=== PATIENT | female | born 1995 | race Caucasian/White ===

== ENCOUNTER 2024-05-11 19:54 | Observation (INO) ==
[2024-05-11 20:19] LABS: iSTAT Creatinine 0.9 mg/dl (0.6-1.3); iSTAT Ionized Calcium 1.17 mmol/l (1.12-1.32); iSTAT Potassium 3.2 mmol/L (3.3-5.0)
[2024-05-11 20:28] LABS: Hematocrit (blood only) 47.5 % (37.0-47.0); Hemoglobin 15.8 g/dl (12.0-16.0); Mean Corpuscular Hemoglobin 28.2 pg (25.0-34.0); Mean Corpuscular Hgb Conc 33.3 g/dL (32.0-36.0); Mean Corpuscular Volume 84.8 fL (80.0-100.0); Mean Platelet Volume 10.9 fL (9.4-12.4); Platelet Count 395 K/uL (130-400); RDW Coefficient of Variation 14.8 % (11.5-14.5); RDW Standard Deviation 45.1 fL (36.4-46.3); White Blood Count 8.74 K/ul (4.8-10.8)
[2024-05-11] MEDS: SODIUM CHLORIDE 0.9% 1,000 ML IV ONE (20:29)
[2024-05-11] MEDS: diphenhydrAMINE 50 MG/ML VIAL IV STA (20:30)
[2024-05-11] MEDS: methylPREDNISolone 125 MG/2 ML VIAL IV STA (20:30)
[2024-05-11] MEDS: FAMOTIDINE 20MG IV PUSH 20 MG/5 ML SYR IV STA (20:32)
[2024-05-11 20:43] LABS: INR 0.9 (0.9-1.1); Partial Thromboplastin Ratio 0.9; Partial Thromboplastin Time 23 Seconds (21-31); Prothrombin Time 10.1 Seconds (9.0-12.0)
[2024-05-11 20:48] LABS: ALC (manual) 4.37 K/uL (1.2-3.4); ANC (manual) 3.76 K/uL (1.4-6.5); Basophils # (manual) 0.09 K/uL (0-0.2); Basophils % (manual) 1 %; D Dimer 3800 ug/L FEU (0-500); Eosinophils # (manual) 0.17 K/uL (0-0.50); Eosinophils % (manual) 2 %; Lymphocytes # (manual) 1.92 K/uL (1.2-3.4); Lymphocytes % (manual) 22 %; Monocytes # (manual) 0.35 K/uL (0.11-0.59); Monocytes % (manual) 4 %; Neutrophils # (manual) 3.76 K/uL (1.40-6.50); Neutrophils % (manual) 43 %; RBC Morphology Unremarkable; Reactive Lymphocytes # (manual) 2.45 K/uL; Reactive Lymphocytes % (manual) 28 %
[2024-05-11 21:00] LABS: BUN Creatinine Ratio 25.6 (10-20); Creatinine Clr Calc Pharmacy 93.7 ml/min; Est GFR (African American) 100.1 ml/min; Est GFR (Non-African American) 86.4 ml/min; Potassium 3.2 mmol/L (3.5-5.1)
[2024-05-11 21:07] LABS: Troponin I High Sensitivity 20.4 pg/ml (0-14)
[2024-05-11] MEDS: OPTIRAY 320 125ml IV ONE (21:28)
--- NOTE | 2024-05-11 21:54 | CT Scan Report ---
Exam(s): CTA CHEST IV Amt: 119ml optiray 320 EXAM: CT Angiography Chest With Intravenous Contrast CLINICAL HISTORY: Reason for exam: ro pe shield abd. TECHNIQUE: Axial computed tomographic angiography images of the chest with intravenous contrast. CTDI is 14.66 mGy and DLP is 475.78 mGy-cm. Automated exposure control was utilized for the study. A dose lowering technique was utilized adhering to the principles of ALARA. MIP reconstructed images were created and reviewed. COMPARISON: No relevant prior studies available. FINDINGS: Pulmonary arteries: Unremarkable. No pulmonary embolism. Aorta: No acute findings. Normal caliber. No dissection. Lungs: Unremarkable. Pleural space: Unremarkable. Heart: Unremarkable. Bones/joints: No acute fracture. Soft tissues: Unremarkable. Lymph nodes: Unremarkable. IMPRESSION: Normal chest CTA. No pulmonary embolism. Electronically signed by: Roberto Suero MD 05/11/24 21:53 PM
[2024-05-11 23:06] LABS: Troponin I High Sensitivity 164.7 pg/ml (0-14)
--- NOTE | 2024-05-12 00:09 | Emergency Department Note ---
History of Present Illness General Chief complaint: Respiratory Problems Stated complaint: SOB, 11 weeks Time Seen by Provider: 05/11/24 20:05 History of Present Illness Provider complaint: Shortness of breath 28-year-old G3, P2 presents emergency department for shortness of breath. Patient reports that at 7 PM she was eating premade food ball from a supermarket when she suddenly became very warm, felt it was difficult to be breathing and felt like her throat was closing. EMS was called. Reportedly, on arrival the patient was cyanotic at the lips with an oxygen saturation at 63% on room air and the patient was hypotensive. EMS applied supplemental oxygen which improved her oxygen saturation and started IV fluids which improved her blood pressure when the patient arrived to the emergency department. Patient reports that she is experiencing some abdominal pain in addition to difficulty breathing and feeling like her throat is closing. She also reports some mild chest pain. No vaginal bleeding or discharge. Past Med/Surg History Problem List (Updated 05/12/24 @ 00:13 by Enoch Qureshi MD) Elevated troponin I level (Acute) Allergic reaction (Acute) Shortness of breath (Acute) Social History Smoking Status: Never smoker Feels Safe at Home: Yes Physical Exam Vital Signs Vital Signs - 24 hr 05/11/24 19:57 05/11/24 19:59 05/11/24 19:59 Temperature 36.6 C Temperature Source Oral Pulse Rate 133 H 130 H Pulse Rate [Apical] Pulse Rate from SpO2 Sensor Respiratory Rate 19 Respiratory Depth Normal Blood Pressure 107/76 Blood Pressure [Right Arm] Blood Pressure Mean 86 Blood Pressure Mean [Right Arm] Pulse Oximetry 100 Oxygen Delivery Method Oxymask Oxygen Flow Rate 3 Sepsis Recent Fever Within 48 Hours No Sepsis New/Unexplained Change in Mental Status No Sepsis Action Taken by Nursing No Action Required Oxygen Flow Rate - Titration Pulse Oximetry Post Tiitration 05/11/24 20:02 05/11/24 20:06 05/11/24 20:12 Temperature Temperature Source Pulse Rate 123 H 125 H Pulse Rate [Apical] Pulse Rate from SpO2 Sensor 124 H 126 H Respiratory Rate 17 20 Respiratory Depth Blood Pressure 107/76 Blood Pressure [Right Arm] Blood Pressure Mean 85 Blood Pressure Mean [Right Arm] Pulse Oximetry 100 100 Oxygen Delivery Method Oxygen Flow Rate Sepsis Recent Fever Within 48 Hours Sepsis New/Unexplained Change in Mental Status Sepsis Action Taken by Nursing Oxygen Flow Rate - Titration Pulse Oximetry Post Tiitration 05/11/24 20:16 05/11/24 20:17 05/11/24 20:20 Temperature Temperature Source Pulse Rate Pulse Rate [Apical] 115 H Pulse Rate from SpO2 Sensor Respiratory Rate 18 Respiratory Depth Blood Pressure Blood Pressure [Right Arm] 104/72 Blood Pressure Mean Blood Pressure Mean [Right Arm] 82 Pulse Oximetry 100 100 100 Oxygen Delivery Method Oxymask Room Air Room Air Oxygen Flow Rate 3 Sepsis Recent Fever Within 48 Hours Sepsis New/Unexplained Change in Mental Status Sepsis Action Taken by Nursing Oxygen Flow Rate - Titration 0 Pulse Oximetry Post Tiitration 100 05/11/24 20:21 05/11/24 20:30 05/11/24 20:42 Temperature Temperature Source Pulse Rate 103 H 103 H Pulse Rate [Apical] Pulse Rate from SpO2 Sensor 104 H 104 H Respiratory Rate 18 18 Respiratory Depth Blood Pressure 104/72 Blood Pressure [Right Arm] Blood Pressure Mean 81 Blood Pressure Mean [Right Arm] Pulse Oximetry 100 100 Oxygen Delivery Method Oxygen Flow Rate Sepsis Recent Fever Within 48 Hours Sepsis New/Unexplained Change in Mental Status Sepsis Action Taken by Nursing Oxygen Flow Rate - Titration Pulse Oximetry Post Tiitration 05/11/24 20:45 05/11/24 21:00 05/11/24 21:03 Temperature Temperature Source Pulse Rate 94 H 83 Pulse Rate [Apical] Pulse Rate from SpO2 Sensor 94 H 82 Respiratory Rate 15 19 Respiratory Depth Blood Pressure 118/78 Blood Pressure [Right Arm] Blood Pressure Mean 85 Blood Pressure Mean [Right Arm] Pulse Oximetry 100 100 Oxygen Delivery Method Oxygen Flow Rate Sepsis Recent Fever Within 48 Hours Sepsis New/Unexplained Change in Mental Status Sepsis Action Taken by Nursing Oxygen Flow Rate - Titration Pulse Oximetry Post Tiitration 05/11/24 21:12 05/11/24 21:13 05/11/24 21:39 Temperature Temperature Source Pulse Rate 105 H 89 Pulse Rate [Apical] 82 Pulse Rate from SpO2 Sensor 98 H 89 Respiratory Rate 24 16 16 Respiratory Depth Blood Pressure Blood Pressure [Right Arm] 118/78 Blood Pressure Mean Blood Pressure Mean [Right Arm] 91 Pulse Oximetry 98 100 100 Oxygen Delivery Method Room Air Oxygen Flow Rate Sepsis Recent Fever Within 48 Hours Sepsis New/Unexplained Change in Mental Status Sepsis Action Taken by Nursing Oxygen Flow Rate - Titration Pulse Oximetry Post Tiitration 05/11/24 21:42 05/11/24 22:00 05/11/24 22:00 Temperature Temperature Source Pulse Rate 86 Pulse Rate [Apical] Pulse Rate from SpO2 Sensor 86 Respiratory Rate 18 Respiratory Depth Blood Pressure 115/71 115/71 Blood Pressure [Right Arm] Blood Pressure Mean 83 83 Blood Pressure Mean [Right Arm] Pulse Oximetry 100 Oxygen Delivery Method Oxygen Flow Rate Sepsis Recent Fever Within 48 Hours Sepsis New/Unexplained Change in Mental Status Sepsis Action Taken by Nursing Oxygen Flow Rate - Titration Pulse Oximetry Post Tiitration 05/11/24 22:09 05/11/24 22:15 05/11/24 22:21 Temperature Temperature Source Pulse Rate 100 H 88 94 H Pulse Rate [Apical] Pulse Rate from SpO2 Sensor 102 H 87 93 H Respiratory Rate 21 15 16 Respiratory Depth Blood Pressure Blood Pressure [Right Arm] Blood Pressure Mean Blood Pressure Mean [Right Arm] Pulse Oximetry 100 99 98 Oxygen Delivery Method Oxygen Flow Rate Sepsis Recent Fever Within 48 Hours Sepsis New/Unexplained Change in Mental Status Sepsis Action Taken by Nursing Oxygen Flow Rate - Titration Pulse Oximetry Post Tiitration 05/11/24 22:27 05/11/24 22:30 05/11/24 22:57 Temperature Temperature Source Pulse Rate 88 83 Pulse Rate [Apical] Pulse Rate from SpO2 Sensor 89 83 Respiratory Rate 16 16 Respiratory Depth Blood Pressure 106/66 Blood Pressure [Right Arm] Blood Pressure Mean 79 Blood Pressure Mean [Right Arm] Pulse Oximetry 99 100 Oxygen Delivery Method Oxygen Flow Rate Sepsis Recent Fever Within 48 Hours Sepsis New/Unexplained Change in Mental Status Sepsis Action Taken by Nursing Oxygen Flow Rate - Titration Pulse Oximetry Post Tiitration 05/11/24 23:00 05/11/24 23:00 05/11/24 23:46 Temperature Temperature Source Pulse Rate 83 82 Pulse Rate [Apical] Pulse Rate from SpO2 Sensor 84 Respiratory Rate 16 Respiratory Depth Blood Pressure 118/74 Blood Pressure [Right Arm] Blood Pressure Mean 84 Blood Pressure Mean [Right Arm] Pulse Oximetry 99 Oxygen Delivery Method Oxygen Flow Rate Sepsis Recent Fever Within 48 Hours Sepsis New/Unexplained Change in Mental Status Sepsis Action Taken by Nursing Oxygen Flow Rate - Titration Pulse Oximetry Post Tiitration Physical Exam HENT: Exam performed. -Head: Normocephalic and atraumatic. -Mouth/Throat: The oropharynx is clear and moist. No trismus in the jaw. No dental abscesses or uvula swelling. No oropharyngeal exudate or tonsillar abscesses. No lip or tongue swelling. No submental swelling. No tongue elevation. NECK: Normal range of motion. Neck supple. No JVD present. CV: Normal rate, regular rhythm, normal heart sounds and intact distal pulses. There is no peripheral edema. Palpable radial pulses bue. PULM/CHEST: Effort normal and breath sounds normal. No respiratory distress. No stridor. She has no wheezes. She has no rales. ABD: The abdomen is soft.There is no tenderness. There is no rebound, no guarding. MUSC/SKEL: Normal range of motion. There is no peripheral edema, tenderness or deformity. NEURO: Motor and sensation grossly intact. SKIN: Erythema of the bilateral lower extremities over the bilateral anterior shins. No warmth. No vesicles. No urticaria. Nikolsky negative. Course Course 2004: The patient was evaluated in room B1. A complete history and physical exam was performed Cardiac monitoring: An order was placed for continuous cardiac monitoring. The monitor shows a rate of 120 with sinus tachycardia rhythm interpreted by me Patient is most likely suffering from an allergic reaction given her difficulty breathing, erythema over the bilateral lower extremities, sudden onset of symptoms while eating the preprepared food, feelings of throat swelling. No tongue swelling no lip swelling no stridor no wheezing. Patient will be treated with IV fluids, IV Benadryl, IV Pepcid and Solu-Medrol. Given the patient's reported abdominal pain we will also obtain obstetric ultrasound and given the patient's chest pain we will also check labs including D-dimer. 2100: Patient in no respiratory distress oxygen saturation stable on room air. Patient reports symptoms better after receiving Benadryl through the IV as well as Pepcid and Solu-Medrol. 2117: Patient's D-dimer elevated. Will obtain CTA of the chest. 0: Vital signs stable. High-sensitivity troponin was 20.4. Will conduct a delta troponin. 2320: Vital signs stable. Patient no respiratory distress. Patient's delta troponin significantly higher at 164.7. The current thought is that the patient had an allergic reaction and the stress of the allergic reaction because the patient have a demand ischemia resulting in the troponin elevation. Patient reports no chest pain at this time. at bedside states the patient has been under a lot of stress. Will contact cardiology for further recommendations and to discuss if admission is appropriate. Discussed the case with on-call [facility] [employer] Dr. Costa who agreed to be on consult if necessary. 2348: Vital signs stable. Patient tolerating p.o. No acute respiratory distress. Lungs clear to auscultation. Discussed the case with [facility] cardiology on-call Dr. Zeng and she agrees that the patient should be admitted and she will evaluate the patient in the morning and perform an echocardiogram. Patient is in agreement with the plan. 0039: Vital signs stable. Discussed case with Dr. Martinez who will evaluate the patient. Discussed case with the [facility] resident Angelina will also evaluate the patient with Dr. Martinez. Administered Medications Discontinued Medications Diphenhydramine HCl (Diphenhydramine 50 Mg/Ml Vial) 25 mg IV NOW STA Stop: 05/11/24 20:12 Last Admin: 05/11/24 20:30 Dose: 25 mg Documented By: BEN Sodium Chloride (Nss) 1,000 mls @ 999 mls/hr IV .Q1H1M ONE Stop: 05/11/24 21:11 Last Infusion: 05/11/24 21:34 Dose: Infused Documented By: Admin: 05/11/24 20:29 Dose: 999 mls/hr Documented By: BEN Famotidine (Pepcid 20mg Iv Push) 20 mg in 5 mls @ 2.5 mls/min IV NOW STA Stop: 05/11/24 20:12 Last Admin: 05/11/24 20:32 Dose: 2.5 mls/min Documented By: BEN Ioversol (Optiray 320 125ml) 91 ml IV ONCE ONE Stop: 05/11/24 21:28 Last Admin: 05/11/24 21:28 Dose: 91 ml Documented By: VIJI Methylprednisolone (Methylprednisolone 125 Mg/2 Ml Vial) 125 mg IV NOW STA Stop: 05/11/24 20:12 Last Admin: 05/11/24 20:30 Dose: 125 mg Documented By: BEN Medical Decision Making Laboratory Data Attestation: I reviewed the patient's lab results. 05/11/24 19:59 05/11/24 19:59 Lab Results 05/11/24 05/11/24 05/11/24 Range/Units 19:59 20:06 22:05 WBC 8.74 (4.8-10.8) K/ul RBC 5.60 H (4.20-5.40) M/uL Hgb 15.8 (12.0-16.0) g/dl POC Hgb 16.0 (12.0-16.0) g/dl Hct 47.5 H (37.0-47.0) % POC Hct 47 (37-47) % MCV 84.8 (80.0-100.0) fL MCH 28.2 (25.0-34.0) pg MCHC 33.3 (32.0-36.0) g/dL RDW Std Deviation 45.1 (36.4-46.3) fL RDW Coeff of Naima 14.8 H (11.5-14.5) % Plt Count 395 (130-400) K/uL MPV 10.9 (9.4-12.4) fL Neutrophils % (Manual) 43 % Lymphocytes % (Manual) 22 % Reactive Lymphs % (Man) 28 % Monocytes % (Manual) 4 % Eosinophils % (Manual) 2 % Basophils % (Manual) 1 % Neutrophils # (Manual) 3.76 (1.40-6.50) K/uL Total Absolute Neuts 3.76 (1.4-6.5) K/uL Lymphocytes # (Manual) 1.92 (1.2-3.4) K/uL Reactive Lymphs # 2.45 K/uL Total Abs Lymphocytes 4.37 H (1.2-3.4) K/uL Monocytes # (Manual) 0.35 (0.11-0.59) K/uL Eosinophils # (Manual) 0.17 (0-0.50) K/uL Basophils # (Manual) 0.09 (0-0.2) K/uL RBC Morphology Unremarkable PT 10.1 (9.0-12.0) Seconds INR 0.9 (0.9-1.1) APTT 23 (21-31) Seconds PTT Ratio 0.9 D-Dimer 3800 H* (0-500) ug/L FEU POC Sodium 137 (135-144) mmol/L Sodium 135 L (136-145) mmol/L POC Potassium 3.2 L (3.3-5.0) mmol/L Potassium 3.2 L (3.5-5.1) mmol/L POC Chloride 104 (101-112) mmol/L Chloride 104 (98-107) mmol/L Carbon Dioxide 19 L (21-32) mmol/L POC Total CO2 18 L (24-31) mmol/L Anion Gap 12 H (3-11) POC Anion Gap 19.0 (16-25) mmol/L POC BUN 21 H (7-18) mg/dl BUN 23 (6-23) mg/dl Creatinine 0.90 (0.6-1.2) mg/dl POC Creatinine 0.9 (0.6-1.3) mg/dl Est Cr Clr Drug Dosing 93.7 ml/min Est GFR ( Amer) 100.1 ml/min Est GFR (Non-Af Amer) 86.4 ml/min BUN/Creatinine Ratio 25.6 H (10-20) Glucose 121 H (70-99(Fasting)) mg/dl POC Glucose (other) 121 H (70-99) mg/dl Calcium 9.0 (8.6-10.3) mg/dl POC Ioniz Calcium Shivani 1.17 (1.12-1.32) mmol/l Troponin I High Sens 20.4 H 164.7 H* D (0-14) pg/ml Lipase 37 (11-82) U/L HCG, Quant [id number] mIU/ml Imaging Data Attestation: I personally reviewed and interpreted this imaging study as follows: My Impression: Chest x-ray negative. Airway clear. No pneumothorax. No consolidation. No cardiomegaly or cephalization.. No free air under the diaphragm. No fractures of the skeletal structures. Radiologist's Impression: Pelvic/Transvag US 05/11/24 20:16 Exam(s): US OTHER EXAM: US First Trimester , Transabdominal CLINICAL HISTORY: Reason for exam: abd pain 11 weeks . TECHNIQUE: Real-time transabdominal obstetrical ultrasound of the maternal pelvis and a first trimester with image documentation. COMPARISON: No relevant prior studies available. FINDINGS: Gestation: Single living intrauterine with estimated gestational age of 11 weeks and 1 day. heart rate 173 bpm. Unremarkable appearance of the gestational sac, yolk sac, and pole. Uterus/cervix: Unremarkable. No myometrial mass. Ovaries: A corpus luteal cyst on the right ovary. Normal appearance of the left ovary. No suspicious adnexal lesion. No mass. Free fluid: No free fluid. IMPRESSION: Single living intrauterine with estimated gestational age of 11 weeks and 1 day. No acute abnormality. Electronically signed by: Roberto Suero MD 05/12/24 00:09 AM Chest CTA 05/11/24 21:18 Exam(s): CTA CHEST IV Amt: 119ml optiray 320 EXAM: CT Angiography Chest With Intravenous Contrast CLINICAL HISTORY: Reason for exam: ro pe shield abd. TECHNIQUE: Axial computed tomographic angiography images of the chest with intravenous contrast. CTDI is 14.66 mGy and DLP is 475.78 mGy-cm. Automated exposure control was utilized for the study. A dose lowering technique was utilized adhering to the principles of ALARA. MIP reconstructed images were created and reviewed. COMPARISON: No relevant prior studies available. FINDINGS: Pulmonary arteries: Unremarkable. No pulmonary embolism. Aorta: No acute findings. Normal caliber. No dissection. Lungs: Unremarkable. Pleural space: Unremarkable. Heart: Unremarkable. Bones/joints: No acute fracture. Soft tissues: Unremarkable. Lymph nodes: Unremarkable. IMPRESSION: Normal chest CTA. No pulmonary embolism. Electronically signed by: Roberto Suero MD 05/11/24 21:53 PM ECG Data Attestation: I personally reviewed and interpreted this ECG as follows: Rate (beats per minute): 125 Rhythm: + normal sinus ECG Intervals/blocks: + Normal CA and + Normal QT-c ECG ST segments: + Normal ST segments Additional Comments: QRS 76 MDM Narrative 2005: The patient was evaluated in room B1. A complete history and physical exam was performed Cardiac monitoring: An order was placed for continuous cardiac monitoring. The monitor shows a rate of 120 with sinus tachycardia rhythm interpreted by me Patient is most likely suffering from an allergic reaction given her difficulty breathing, erythema over the bilateral lower extremities, sudden onset of symptoms while eating the preprepared food, feelings of throat swelling. No tongue swelling no lip swelling no stridor no wheezing. Patient will be treated with IV fluids, IV Benadryl, IV Pepcid and Solu-Medrol. Given the patient's reported abdominal pain we will also obtain obstetric ultrasound and given the patient's chest pain we will also check labs including D-dimer. 2100: Patient in no respiratory distress oxygen saturation stable on room air. Patient reports symptoms better after receiving Benadryl through the IV as well as Pepcid and Solu-Medrol. 2118: Patient's D-dimer elevated. Will obtain CTA of the chest. 2200: Vital signs stable. High-sensitivity troponin was 20.4. Will conduct a delta troponin. 2321: Vital signs stable. Patient no respiratory distress. Patient's delta troponin significantly higher at 164.7. The current thought is that the patient had an allergic reaction and the stress of the allergic reaction because the patient have a demand ischemia resulting in the troponin elevation. Patient reports no chest pain at this time. at bedside states the patient has been under a lot of stress. Will contact cardiology for further recommendations and to discuss if admission is appropriate. Discussed the case with on-call [facility] [employer]INE REPORTER Dr. Costa who agreed to be on consult if necessary. 2348: Vital signs stable. Patient tolerating p.o. No acute respiratory distress. Lungs clear to auscultation. Discussed the case with [facility] cardiology on-call Dr. Zeng and she agrees that the patient should be admitted and she will evaluate the patient in the morning and perform an echocardiogram. Patient is in agreement with the plan. 0039: Vital signs stable. Discussed case with Dr. Martinez who will evaluate the patient. Discussed case with the [facility] resident Angelina will also evaluate the patient with Dr. Martinez. Impression & Plan Shortness of breath, Allergic reaction, Elevated troponin I level Discharge Plan Visit Data Chief Complaint: Respiratory Problems Stated Complaint: SOB, 11 weeks ED Provider: Enoch Qureshi Discharge Problem: Shortness of breath, Allergic reaction, Elevated troponin I level Patient Disposition: Being Evaluated by Hospitalist Forms Stand Alone Forms: [facility] Referrals Referrals: Tricia Walsh M.D. [Staff Physician] - Discharge Problem: Allergic reaction Qualifiers: Encounter type: initial encounter Qualified Code(s): T78.40XA - Allergy, unspecified, initial encounter
--- NOTE | 2024-05-12 00:30 | History & Physical Report ---
Date of Service May 12, 2024 Assessment & Plan (1) Allergic reaction: (2) Shortness of breath: (3) Elevated troponin I level: (4) Hypokalemia: (5) First trimester : (6) Hypothyroidism: Plan Judi is a 28F w/ PMH of hyperthyroidism s/p radioiodine ablation now hypothyroid who presented via EMS after being found at home cyanotic, hypoxic, and hypotensive after dinner. Acute Hypoxia/Dyspnea Likely 2/2 Allergic Reaction - History c/w allergy d/t sudden onset after meal and mays improvement w/ antihistamines/steroids and O2 supplementation - Patient w/o hx of allergies, eczema, or asthma/COPD - D-dimer elevated, CTA negative for PE - CXR unremarkable - EKG w/ sinus tachycardia on presentation - Hemodynamically stable on room air, afebrile - S/p 1L NSS, Benadryl, Methylpred 125 mg, and Pepcid Benadryl ordered PRN for allergy symptoms - Allergen/IgE studies ordered (RAST and Food Allergy Panel) Hypothyroidism s/p Radioiodine Ablation for Hyperthyroidism - Chronic management with Armor thyroid - Recent dose change d/t elevated TSH outpatient Patient reports TSH > 50 - Currently on Armor thyroid 180 mg daily - TSH 17.7, free T3 and free T4 pending - Concern exist for thyroid contribution to presenting sx Though clinical picture not entirely c/w myxedema coma Hypokalemia, Mild (3.2) - Repletion ordered Elevated Troponin (20.4 to 164) - No active chest pain - EKG w/o ischemia, CXR unremarkable - Likely demand a/w hypoxia - Continue to trend and monitor on telemetry 1st Trimester of - Patient is , denies prior complications -Transvaginal US: Single living intrauterine with estimated gestational age of 11 weeks and 1 day. No acute abnormality. - HR 173 - No vaginal bleeding or discharge - OBGYN consulted, to evaluate in morning FENGI: NPO, s/p 1L NSS DVT Ppx: Ambulation CODE: Full Consults: OB History of Present Illness Chief Complaint: Dyspnea in 1st Trimester of Primary Care Provider: Kalyn Govea MD Judi is a 28F w/ PMH of hyperthyroidism s/p radioiodine ablation now hypothyroid who presented via EMS after being found at home cyanotic, hypoxic, and hypotensive after dinner. Patient notes that she had dinner around 7:30 (a pre-packaged cauliflower pizza from [employer]) and subsequently began to experience dyspnea and throat tightness. At the time, her was on a walk with their children, when he returned and found her dyspneic, EMS was called. Upon EMS arrival patient was noted to be cyanotic w/ O2 saturations in the 60s. Patient has no known history of allergies. 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 She has no history of asthma or COPD and does not smoke/vape. Patient has never had a similar episode. Patient denies chest pain, pleuritic pain, lightheadedness, dizziness, dysuria, bowel changes, or lower extremity edema. She has not experienced any recent URI sx and her family has not recently been sick. At the time of evaluation, all of patient's symptoms had resolved. Patient is currently 11 weeks with her third baby. She has two young children at home. She notes that she was nursing her second child when she got p cassy. She has had no abdominal pain, vaginal bleeding, or spotting. She has felt well this and denies complications with previous pregnancies. She is established with a surfacer and plans to deliver her child at home. She is not currently taking any supplements. Patient takes Armor thyroid at baseline for hypothyroidism. She notes that her thyroid levels are often labile and she was recently increased from 120 mg to 180 mg due to an elevated TSH. She notes a history of difficulty controlling her thyroid during pregnancies and nursing. She has been referred to an [employer] but has not yet seen them. Allergies Allergy/AdvReac Type Severity Reaction Status Date / Time No Known Allergies Allergy Unverified 05/12/24 05:17 Home Medications Medication Instructions Recorded Confirmed Type epinephrine 0.3 mg/0.3 mL 0.3 mg (0.3 mL) IM Q3H PRN 05/12/24 Rx injection, auto-injector anaphylaxis #2 ea levothyroxine 200 mcg tablet 200 mcg PO DAILY #30 tabs 05/12/24 Rx (Euthyrox) Past Med/Surg History Problem List (Updated 05/12/24 @ 14:56 by Melissa Nicholas DO) D-dimer, elevated Hypothyroidism First trimester Hypokalemia Elevated troponin I level (Acute) Allergic reaction (Acute) Shortness of breath (Acute) Social History Smoking Status: Never smoker Second Hand Exposure: No; Do You Dip or Chew Tobacco: No; Hx Alcohol Use: No Hx Substance Use: No Preferred Language: Turkmen Communication Ability: Effective Assembler Insulator Required: No Beliefs That Will Affect Care: None Current Living Situation: Spouse Current Living Situation Comment: spouse and children Feels Safe at Home: Yes Assistive Devices: Glasses Physical Exam Physical Exam: Gen: NAD, alert, interactive, dry cracked lips HEENT: Supple, no LAD, no thyromegaly, no JVD Resp:Non-labored, no wheezing/rhonchi/rales, CTAB CV:RRR, normal S1/S2, no M/R/G Abd: Soft, gravid, no TTP, normoactive bowels, no masses Extr: 2+ dp bilaterally, no edema Skin: No rashes lesions or erythema Results & Data Results & Data Vital Signs (Past 12 Hours) Vital Signs Temp Pulse Pulse Resp BP BP Pulse Ox 05/11/24 23:46 82 05/11/24 23:00 83 16 99 05/11/24 23:00 118/74 05/11/24 22:57 83 16 100 05/11/24 22:30 106/66 05/11/24 22:27 88 16 99 05/11/24 22:21 94 H 16 98 05/11/24 22:15 88 15 99 05/11/24 22:09 100 H 21 100 05/11/24 22:00 115/71 05/11/24 22:00 115/71 05/11/24 21:42 86 18 100 05/11/24 21:39 89 16 100 05/11/24 21:13 82 16 118/78 100 05/11/24 21:12 105 H 24 98 05/11/24 21:03 83 19 100 05/11/24 21:00 118/78 05/11/24 20:45 94 H 15 100 05/11/24 20:42 103 H 18 100 05/11/24 20:30 103 H 18 100 05/11/24 20:21 104/72 05/11/24 20:20 115 H 18 104/72 100 05/11/24 20:17 100 05/11/24 20:16 100 05/11/24 20:12 125 H 20 100 05/11/24 20:06 123 H 17 100 05/11/24 20:02 107/76 05/11/24 19:59 36.6 C 130 H 19 107/76 100 05/11/24 19:57 133 H O2 Del Method O2 Flow Rate 05/11/24 23:46 05/11/24 23:00 05/11/24 23:00 05/11/24 22:57 05/11/24 22:30 05/11/24 22:27 05/11/24 22:21 05/11/24 22:15 05/11/24 22:09 05/11/24 22:00 05/11/24 22:00 05/11/24 21:42 05/11/24 21:39 05/11/24 21:13 Room Air 05/11/24 21:12 05/11/24 21:03 05/11/24 21:00 05/11/24 20:45 05/11/24 20:42 05/11/24 20:30 05/11/24 20:21 05/11/24 20:20 Room Air 05/11/24 20:17 Room Air 05/11/24 20:16 Oxymask 3 05/11/24 20:12 05/11/24 20:06 05/11/24 20:02 05/11/24 19:59 Oxymask 3 05/11/24 19:57 Diagnostic Findings Pelvic/Transvag US 05/11/24 20:16 Exam(s): US OTHER EXAM: US First Trimester , Transabdominal CLINICAL HISTORY: Reason for exam: abd pain 11 weeks . TECHNIQUE: Real-time transabdominal obstetrical ultrasound of the maternal pelvis and a first trimester with image documentation. COMPARISON: No relevant prior studies available. FINDINGS: Gestation: Single living intrauterine with estimated gestational age of 11 weeks and 1 day. heart rate 173 bpm. Unremarkable appearance of the gestational sac, yolk sac, and pole. Uterus/cervix: Unremarkable. No myometrial mass. Ovaries: A corpus luteal cyst on the right ovary. Normal appearance of the left ovary. No suspicious adnexal lesion. No mass. Free fluid: No free fluid. IMPRESSION: Single living intrauterine with estimated gestational age of 11 weeks and 1 day. No acute abnormality. Electronically signed by: Roberto Suero MD 05/12/24 00:09 AM Chest CTA 05/11/24 21:18 Exam(s): CTA CHEST IV Amt: 119ml optiray 320 EXAM: CT Angiography Chest With Intravenous Contrast CLINICAL HISTORY: Reason for exam: ro pe shield abd. TECHNIQUE: Axial computed tomographic angiography images of the chest with intravenous contrast. CTDI is 14.66 mGy and DLP is 475.78 mGy-cm. Automated exposure control was utilized for the study. A dose lowering technique was utilized adhering to the principles of ALARA. MIP reconstructed images were created and reviewed. COMPARISON: No relevant prior studies available. FINDINGS: Pulmonary arteries: Unremarkable. No pulmonary embolism. Aorta: No acute findings. Normal caliber. No dissection. Lungs: Unremarkable. Pleural space: Unremarkable. Heart: Unremarkable. Bones/joints: No acute fracture. Soft tissues: Unremarkable. Lymph nodes: Unremarkable. IMPRESSION: Normal chest CTA. No pulmonary embolism. Electronically signed by: Roberto Suero MD 05/11/24 21:53 PM Supervising Physician Co-Signing Physician Notes Attending addendum: I have physically seen this patient, have supervised the medical residents activities, and agree with the H&P unless as otherwise noted. Assessment and Plan: Acute hypoxia/dyspnea/presumptive allergic/anaphylactic reaction- CTA negative for PE due to elevated D-dimer Chest x-ray unremarkable EKG with sinus tachycardia Received 1 L normal saline, Benadryl 25 mg IV, Solu-Medrol 125 mg IV and Pepcid 20 mg IV Continue Benadryl from 5 mg IV every 4 hours as needed Order RAST test for zone 3 allergens and food allergy panel Patient will need to follow-up with outpatient allergy specialty, consideration for mast cell activation syndrome Elevated troponin- Troponin initially 20.4, follow-up 164 Telemetry admission Likely type II Consult cardiology 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
[2024-05-12 01:49] LABS: T4 Free Thyroxine 0.71 ng/dl (0.61-1.60); Thyroid Stimulating Hormone 17.735 uIu/ml (0.300-4.500)
[2024-05-12] MEDS ORDERED: ACETAMINOPHEN 325 MG TAB PO PRN (04:54)
[2024-05-12] MEDS ORDERED: diphenhydrAMINE 50 MG/ML VIAL IV PRN (04:54)
[2024-05-12] MEDS ORDERED: ONDANSETRON INJ 2 MG/ML 2 ML VIAL IV PRN (04:54)
[2024-05-12] MEDS ORDERED: Patient's ALLERGY Info needs ENTERED STA (05:08)
[2024-05-12] MEDS ORDERED: Nursing to Pharmacy Communication SCH (06:00)
[2024-05-12] MEDS: POTASSIUM CHLORIDE CRTAB 20 MEQ TABCR PO STA (06:20)
[2024-05-12] MEDS: ARMOUR THYROID 30 MG TAB PO SCH (06:20)
--- NOTE | 2024-05-12 07:38 | Hospitalist Progress Note ---
Date of Service May 12, 2024 Assessment & Plan (1) Allergic reaction: (2) Shortness of breath: (3) Elevated troponin I level: (4) Hypokalemia: (5) First trimester : (6) Hypothyroidism: Benigno Lau is a 28F w/ PMH of hyperthyroidism s/p radioiodine ablation now hypothyroid who presented via EMS after being found at home cyanotic, hypoxic, and hypotensive after dinner. 1) Acute Hypoxia/Dyspnea (Likely d/t Allergic Reaction) - History c/w allergy d/t sudden onset after meal and mays improvement w/ antihistamines/steroids and O2 supplementation - Patient w/o hx of allergies, eczema, or asthma/COPD - D-dimer elevated, CTA negative for PE - CXR unremarkable - EKG w/ sinus tachycardia on presentation - Hemodynamically stable on room air, afebrile - S/p 1L NSS, Benadryl, Methylpred 125 mg, and Pepcid Benadryl ordered PRN for allergy symptoms - Allergen/IgE studies ordered (RAST and Food Allergy Panel) 2) Hypothyroidism s/p Radioiodine Ablation for Hyperthyroidism - Chronic management with Armor thyroid - Recent dose change d/t elevated TSH outpatient - Currently on Armor thyroid 180 mg daily, discontinue upon discharge - TSH 17.7, free T3 and free T4 pending - Concern exist for thyroid contribution to presenting sx - Discharge patient on levothyroxine, 200 mcg, PO, daily, Elevated Troponin - No active chest pain, EKG w/o ischemia, CXR unremarkable - HSTrop, 165 <-- 20 (admission - Likely demand a/w hypoxia - Continue to trend and monitor on telemetry 1st Trimester of - Patient is , denies prior complications -Transvaginal US: Single living intrauterine with estimated gestational age of 11 weeks and 1 day. No acute abnormality. - HR 173 - No vaginal bleeding or discharge - OBGYN consulted, to evaluate in morning Hypokalemia, Mild (3.2) - Repletion ordered FENGI: NPO, s/p 1L NSS DVT Ppx: Ambulation CODE: Full Consults: OB Admission and Anticipated Discharge Date Admission Date: May 12, 2024 Subjective Patient had had a cauliflower crust pizza w/ pepperoni and valles peppers, and mushrooms. Pt was eating at home and felt the respiratory Sx about 10 min after finishing eating. Respiratory Sx included dyspnea, throat tightening, and possibly increased respiratory rate with some accompanying nausea. Review of Systems Constitutional: no fever, no chills, no fatigue and no weakness Respiratory: no cough, no dyspnea and no wheezing Cardiovascular: no chest pain and no palpitations Gastrointestinal: no abdominal pain, no nausea and no vomiting Neurologic: no tingling and no numbness Allergy / Immunological: no GI upset with certain foods (patient unaware of any specific foods that cause allergic reaction), no throat swelling, no tongue swelling, no urticaria and no dyspnea Physical Exam Constitutional: WD/WN, vitals as above Respiratory: normal respiratory effort, lungs clear to auscultation Cardiovascular: RRR, no murmur, no edema Gastrointestinal (Abdomen): normal bowel sounds, soft, nontender, no hepatosp lenomegaly Skin: no rashes, warm and dry Psychiatric: A+Ox3, euthymic affect Results & Data Results & Data Vital Signs (Past 12 Hours) Vital Signs Temp Pulse Pulse Pulse Resp BP BP 05/12/24 04:11 87 05/12/24 03:28 05/12/24 03:00 36.6 C 76 16 115/70 05/12/24 01:21 82 16 05/12/24 01:00 112/67 05/12/24 01:00 75 15 05/12/24 00:42 94 H 19 05/12/24 00:30 112/70 05/12/24 00:30 71 16 05/12/24 00:21 73 15 05/12/24 00:15 78 16 05/12/24 00:00 109/67 05/11/24 23:48 81 19 05/11/24 23:46 82 05/11/24 23:42 86 14 05/11/24 23:30 120/71 05/11/24 23:24 88 15 05/11/24 23:21 84 22 05/11/24 23:18 86 16 05/11/24 23:00 83 16 05/11/24 23:00 118/74 05/11/24 22:57 83 16 05/11/24 22:30 106/66 05/11/24 22:27 88 16 05/11/24 22:21 94 H 16 05/11/24 22:15 88 15 05/11/24 22:09 100 H 21 05/11/24 22:00 115/71 05/11/24 22:00 115/71 05/11/24 21:42 86 18 05/11/24 21:39 89 16 05/11/24 21:13 82 16 05/11/24 21:12 105 H 24 05/11/24 21:03 83 19 05/11/24 21:00 118/78 05/11/24 20:45 94 H 15 05/11/24 20:42 103 H 18 05/11/24 20:30 103 H 18 05/11/24 20:21 104/72 05/11/24 20:20 115 H 18 05/11/24 20:17 05/11/24 20:16 05/11/24 20:12 125 H 20 05/11/24 20:06 123 H 17 05/11/24 20:02 107/76 05/11/24 19:59 36.6 C 130 H 19 107/76 05/11/24 19:57 133 H BP Pulse Ox O2 Del Method O2 Flow Rate 05/12/24 04:11 05/12/24 03:28 Room Air 05/12/24 03:00 97 Room Air 05/12/24 01:21 99 05/12/24 01:00 05/12/24 01:00 98 05/12/24 00:42 97 05/12/24 00:30 05/12/24 00:30 99 05/12/24 00:21 99 05/12/24 00:15 99 05/12/24 00:00 05/11/24 23:48 99 05/11/24 23:46 05/11/24 23:42 98 05/11/24 23:30 05/11/24 23:24 100 05/11/24 23:21 100 05/11/24 23:18 100 05/11/24 23:00 99 05/11/24 23:00 05/11/24 22:57 100 05/11/24 22:30 05/11/24 22:27 99 05/11/24 22:21 98 05/11/24 22:15 99 05/11/24 22:09 100 05/11/24 22:00 05/11/24 22:00 05/11/24 21:42 100 05/11/24 21:39 100 05/11/24 21:13 118/78 100 Room Air 05/11/24 21:12 98 05/11/24 21:03 100 05/11/24 21:00 05/11/24 20:45 100 05/11/24 20:42 100 05/11/24 20:30 100 05/11/24 20:21 05/11/24 20:20 104/72 100 Room Air 05/11/24 20:17 100 Room Air 05/11/24 20:16 100 Oxymask 3 05/11/24 20:12 100 05/11/24 20:06 100 05/11/24 20:02 05/11/24 19:59 100 Oxymask 3 05/11/24 19:57 Resident Activity Tracking Resident Involvement: Resident Care Provided Care Provided: Adult Hospital Medicine (1) Allergic reaction Encounter type: initial encounter Qualified Code(s): T78.40XA - Allergy, unspecified, initial encounter
[2024-05-12 07:51] VITALS: RESP 18
--- NOTE | 2024-05-12 08:06 | OB/GYN Consultation ---
Date of Consultation May 12, 2024 Assessment & Plan (1) First trimester : I offered labs but the patient is apparently following up her umbrella supervisor for these and these likely can wait until that time. I had addressed that we would just aspirin consult on the and at 11 weeks had nothing further to add however I did address the issue of hypothyroidism states she had Graves' disease in the past she is TSH of 17 which is significantly elevated discussed increased risk for developing fetus including mental and brain development of the fetus and the importance of better dosing on this she says her primary care manages her thyroid replacement as she had had treatment before for the Graves' disease which essentially has rendered her thyroid low functioning. She says her PCP has not adjusted the dosing and has apparently referred her to endocrinology but does not have an endocrine appointment yet I would suggest increasing her dose per the medical team's recommendation while in hospital as again this is a worry for the developing fetus also would recommend outpatient endocrinology assessment for optimal thyroid replacement dosing Otherwise reviewed typical symptoms at this stage have nothing further to offer I do not feel any further testing is valuable as we have a normal ultrasound and she is not bleeding Total time spent reviewing chart imaging and [id number] 40 minutes (2) Hypothyroidism: History of Present Illness Attending Physician: Surjit Parsons DO History of Present Illness Asked to consult on patient approximately 11 weeks she is not known to her practice and she follows with a umbrella supervisor and plans to deliver at home she had a reaction last night was admitted by the medical team. At this point she has no bleeding ultrasound suggest around 11 weeks she states that her previous pregnancies were uncomplicated 1 at a birthing center and 1 at home . She has not seen her umbrella supervisor for this yet she has not had her labs but says her umbrella supervisor does get these routinely. She is feeling better this morning than she did last night Allergies Allergy/AdvReac Type Severity Reaction Status Date / Time No Known Allergies Allergy Unverified 05/12/24 05:17 Patient History Social History Smoking Status: Never smoker Second Hand Exposure: No; Do You Dip or Chew Tobacco: No; Hx Alcohol Use: No Hx Substance Use: No Preferred Language: Serbian Communication Ability: Effective Treatment Specialist Required: No Beliefs That Will Affect Care: None Current Living Situation: Spouse Current Living Situation Comment: spouse and children Other Information That Helps Us Care for You: No Feels Safe at Home: Yes Safety Concerns: Feels Safe At This Time Assistive Devices: Glasses Results & Data Vital Signs (Past 12 Hours) Vital Signs Temp Pulse Pulse Pulse Resp BP BP 05/12/24 07:50 98.4 F 79 18 112/65 05/12/24 04:11 87 05/12/24 03:28 05/12/24 03:00 97.9 F 76 16 115/70 05/12/24 01:21 82 16 05/12/24 01:00 112/67 05/12/24 01:00 75 15 05/12/24 00:42 94 H 19 05/12/24 00:30 112/70 05/12/24 00:30 71 16 05/12/24 00:21 73 15 05/12/24 00:15 78 16 05/12/24 00:00 109/67 05/11/24 23:48 81 19 05/11/24 23:46 82 05/11/24 23:42 86 14 05/11/24 23:30 120/71 05/11/24 23:24 88 15 05/11/24 23:21 84 22 05/11/24 23:18 86 16 05/11/24 23:00 83 16 05/11/24 23:00 118/74 05/11/24 22:57 83 16 05/11/24 22:30 106/66 05/11/24 22:27 88 16 05/11/24 22:21 94 H 16 05/11/24 22:15 88 15 05/11/24 22:09 100 H 21 05/11/24 22:00 115/71 05/11/24 22:00 115/71 05/11/24 21:42 86 18 05/11/24 21:39 89 16 05/11/24 21:13 82 16 05/11/24 21:12 105 H 24 05/11/24 21:03 83 19 05/11/24 21:00 118/78 05/11/24 20:45 94 H 15 05/11/24 20:42 103 H 18 05/11/24 20:30 103 H 18 05/11/24 20:21 104/72 05/11/24 20:20 115 H 18 05/11/24 20:17 05/11/24 20:16 05/11/24 20:12 125 H 20 05/11/24 20:06 123 H 17 BP Pulse Ox O2 Del Method O2 Flow Rate 05/12/24 07:50 98 Room Air 05/12/24 04:11 05/12/24 03:28 Room Air 05/12/24 03:00 97 Room Air 05/12/24 01:21 99 05/12/24 01:00 05/12/24 01:00 98 05/12/24 00:42 97 05/12/24 00:30 05/12/24 00:30 99 05/12/24 00:21 99 05/12/24 00:15 99 05/12/24 00:00 05/11/24 23:48 99 05/11/24 23:46 05/11/24 23:42 98 05/11/24 23:30 05/11/24 23:24 100 05/11/24 23:21 100 05/11/24 23:18 100 05/11/24 23:00 99 05/11/24 23:00 05/11/24 22:57 100 05/11/24 22:30 05/11/24 22:27 99 05/11/24 22:21 98 05/11/24 22:15 99 05/11/24 22:09 100 05/11/24 22:00 05/11/24 22:00 05/11/24 21:42 100 05/11/24 21:39 100 05/11/24 21:13 118/78 100 Room Air 05/11/24 21:12 98 05/11/24 21:03 100 05/11/24 21:00 05/11/24 20:45 100 05/11/24 20:42 100 05/11/24 20:30 100 05/11/24 20:21 05/11/24 20:20 104/72 100 Room Air 05/11/24 20:17 100 Room Air 05/11/24 20:16 100 Oxymask 3 05/11/24 20:12 100 05/11/24 20:06 100 PG Care Time/CCT Total # of Minutes Spent Total Time Spent with Patient: Total time spent is greater than 50% in coordination of care (as documented) at patient's floor/unit and/or counseling patient: Coding Level of Care Code 86057 IN/OBS CONSULT LVL 2,35M Diagnoses First trimester Z34.91 Hypothyroidism E03.9
--- NOTE | 2024-05-12 08:16 | XRay Report ---
SINGLE VIEW CHEST CLINICAL HISTORY: Atypical chest pain. FINDINGS: An AP, portable, upright chest radiograph is obtained. No prior studies are available for c omparison at the time of dictation. The cardiomediastinal silhouette is unremarkable. The lungs and p leural spaces are clear. No pneumothorax is seen. The bony thorax is grossly intact. IMPRESSION: No active disease in the chest. ACT 112: Negative or not required by law. Electronically signed by: Kumar Doyle M.D. 05/12/2024 8:15 AM
[2024-05-12] MEDS: PRENATAL VITAMIN 1 TAB PO SCH (08:33)
[2024-05-12] MEDS ORDERED: ARMOUR THYROID 30 MG TAB PO SCH (09:00)
[2024-05-12 11:34] VITALS: O2SAT 99
[2024-05-12 13:46] LABS: BUN Creatinine Ratio 14.3 (10-20); Calcium 9.3 mg/dl (8.6-10.3); Creatinine Clr Calc Pharmacy 133.9 ml/min; Est GFR (African American) 140.5 ml/min; Est GFR (Non-African American) 121.2 ml/min; Potassium 3.2 mmol/L (3.5-5.1)
--- NOTE | 2024-05-12 14:44 | Cardiology Consultation ---
Date of Consultation May 12, 2024 Assessment & Plan (1) Elevated troponin I level: (2) First trimester : (3) Hypothyroidism: (4) D-dimer, elevated: Plan Would recheck baseline ECG from last pm to make sure no changes. Would consider starting ASA 81mg daily. The etiology is unclear, but differential diagnosis includes anaphylactic reaction , coronary dissection, PE. Given rapid resolution with benedryl, allergic/anaphylactic reaction may be more likely. IF ACS, would expect a much higher troponin level. ECHO is also not consistent with ACS or PE with acute cor pulmonale. If ECG is unchanged, would rec she stay on ASA at this time. I will follow up as outpatient and schedule more detailed ECHO to assess for PFO. Possible DC as per primary service. History of Present Illness Reason for Consultation: + Troponin Requesting Physician: ER Attending Physician: Surjit Parsons DO History of Present Illness This is a very nice 28 y/o woman currently 11 weeks presented to ER for shortness of breath. Patient reports that at 7 PM last night she was eating premade cauliflour pizza from [employer] when she suddenly became very warm, felt it was difficult to be breathing and felt like her throat was closing. EMS was called. Reportedly, on arrival the patient was cyanotic at the lips with an oxygen saturation at 63% on room air and the patient was hypotensive. EMS applied supplemental oxygen which improved her oxygen saturation and started IV fluids which improved her blood pressure when the patient arrived to the emergency department. Patient reports that she is experiencing some abdominal pain in addition to difficulty breathing and feeling like her throat is closing. She also reports some mild chest pain. In the ER, she was given Benedryl and her symptoms quickly improved. Her initial ECG showed Sinus tachycardia, troponin initially negative, but repeat increased to 150. D dimer was markedly elevated and underwent CTA which was read as negative for PE. She was seen at 7 this am and feels back to her usual state of health. ECHO done shows normal LVEF without wall motion abnormalities. There are no significant valve abnormalities noted. There is an atrial septal aneurysm but cannot completely r.o PFO. Allergies Allergy/AdvReac Type Severity Reaction Status Date / Time No Known Allergies Allergy Unverified 05/12/24 05:17 Home Medications Medication Instructions Recorded Confirmed Type thyroid (pork) 180 mg tablet 180 mg PO DAILY 05/12/24 05/12/24 History ([place] Thyroid) Patient History Social History Smoking Status: Never smoker Second Hand Exposure: No; Do You Dip or Chew Tobacco: No; Hx Alcohol Use: No Hx Substance Use: No Preferred Language: Cypriot Communication Ability: Effective Model Making Supervisor Required: No Beliefs That Will Affect Care: None Current Living Situation: Spouse Current Living Situation Comment: spouse and children Other Information That Helps Us Care for You: No Feels Safe at Home: Yes Safety Concerns: Feels Safe At This Time Assistive Devices: Glasses Review of Systems Review of Systems: All systems reviewed & are unremarkable except as noted in HPI & below Respiratory: as per Subjective / HPI Cardiovascular: as per Subjective / HPI Physical Exam Constitutional: well developed and well nourished Eyes: PERRL, conjunctivae normal, anicteric sclerae ENMT: external ear and nose normal, oropharynx normal Neck: trachea midline, no thyromegaly Respiratory: normal respiratory effort, lungs clear to auscultation Cardiovascular: RRR, no murmur, no edema Skin: eczema rash Neurologic: PERRL, EOMI, accommodation nl, no face palsy, no dysarthria Psychiatric: A+Ox3, euthymic affect Results & Data Vital Signs (Past 12 Hours) Vital Signs Temp Pulse Pulse Resp BP Pulse Ox O2 Del Method 05/12/24 13:57 80 05/12/24 11:33 37.0 C 75 18 129/68 99 Room Air 05/12/24 08:24 72 05/12/24 07:50 36.9 C 79 18 112/65 98 Room Air 05/12/24 04:11 87 05/12/24 03:28 Room Air 05/12/24 03:00 36.6 C 76 16 115/70 97 Room Air Laboratory Results Abnormal lab results 05/11/24 05/11/24 05/11/24 Range/Units 19:59 20:06 22:05 RBC 5.60 H (4.20-5.40) M/uL Hct 47.5 H (37.0-47.0) % RDW Coeff of Naima 14.8 H (11.5-14.5) % Total Abs Lymphocytes 4.37 H (1.2-3.4) K/uL D-Dimer 3800 H* (0-500) ug/L FEU Sodium 135 L (136-145) mmol/L POC Potassium 3.2 L (3.3-5.0) mmol/L Potassium 3.2 L (3.5-5.1) mmol/L Carbon Dioxide 19 L (21-32) mmol/L POC Total CO2 18 L (24-31) mmol/L Anion Gap 12 H (3-11) POC BUN 21 H (7-18) mg/dl BUN/Creatinine Ratio 25.6 H (10-20) Glucose 121 H (70-99(Fasting)) mg/dl POC Glucose (other) 121 H (70-99) mg/dl Troponin I High Sens 20.4 H 164.7 H* D (0-14) pg/ml TSH 17.735 H (0.300-4.500) uIu/ml 05/12/24 05/12/24 Range/Units 08:24 13:06 RBC (4.20-5.40) M/uL Hct (37.0-47.0) % RDW Coeff of Naima (11.5-14.5) % Total Abs Lymphocytes (1.2-3.4) K/uL D-Dimer (0-500) ug/L FEU Sodium (136-145) mmol/L POC Potassium (3.3-5.0) mmol/L Potassium 3.2 L (3.5-5.1) mmol/L Carbon Dioxide 20 L (21-32) mmol/L POC Total CO2 (24-31) mmol/L Anion Gap (3-11) POC BUN (7-18) mg/dl BUN/Creatinine Ratio (10-20) Glucose 167 H (70-99(Fasting)) mg/dl POC Glucose (other) (70-99) mg/dl Troponin I High Sens 119.1 H* D (0-14) pg/ml TSH (0.300-4.500) uIu/ml
[2024-05-12 15:26] VITALS: TEMP 97.8
--- OUTSIDE RECORDS SUMMARY | 2024-05-12 16:06 | External Medical Summary | Continuity of Care Document ---
Author Name Unknown Organization [facility] [address] Address [address] [place], [place] [id number] Care Team Providers Care Incendiary Powder Mixer Name Role Phone Kalyn Govea Primary Care Physician [phone] [id number] Date(s): 02/16/24 - 02/16/24 [facility] [address], [address] [place] [address] [phone] Encounter Diagnosis Dry skin(Discharge Diagnosis) - 02/16/24 Postablative hypothyroidism(Discharge Diagnosis) - 02/16/24 Eczema(Discharge Diagnosis) - 02/16/24 Fatigue(Discharge Diagnosis) - 02/16/24 Other fatigue(Final) - Xerosis cutis(Final) - Dermatitis, unspecified(Final) - Postprocedural hypothyroidism(Final) - Discharge Disposition: Home or Self Care Attending Physician: AALIYAH Liang Jessica A Allergies, Adverse Reactions, Alerts No Known Allergies Assessment and Plan Extracted from: Title:discuss labs Author:AALIYAH Liang Jessi ca A Date:02/16/24 1.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 Goal is euthyroidism with TSH around 1 2. Labs reviewed from October 2023 and TSH was elevated. She did request a full thyroid panel be ordered, so TSH, free T4 and free T3 ordered. For now she will continue [place] Thyroid 128 mg, 1 tab p.o. daily and we will adjust dose accordingly based on lab results. 2.Eczema Eczema is chronic and has been uncontrolled. Goalis improvement to resolution of symptoms. She is not interested in a referral to dermatologyand prefers to continue to work with her homeopathic provideron managing symptoms. She did requesthormone levels todayand reviewed that often these are not helpful in the clinical settingand may not be covered by insurance, but would like to have them drawn regardless. FSH, LH, estradiol and progesterone levels ordered. 3.Fatigue Fatigue is chronic and likely secondary to having 2 small children at home, waking to breast-feed anddisrupted sleep due toskin itching with eczema. For completeness CBC with differential, iron studies, B12and vitamin D level ordered. Time spent on pre-visit plannin minute chart review Face to face time spent w/ patient: 13 minutes Time spent documenting pertinent clinical information into the EMR: 8minutes Total time: 22 minutes Medications Melanie Thyroid 120 mg oral tablet Start: 11/11/23 11:29:00 AM EST, 1 tab, PO, Daily, Disp# 30 tab, Refills: 3, Pharmacy: [facility] Start Date: 11/11/23 Status: Ordered Mental Status 02/16/24 Barriers to Learning one year None evide nt Mandatory Health Literacy Documentation Yes Health Literacy Communication Barriers N ever Primary Language Mongolian Problem List Condition Confirmation Course Effective Dates Status H ealth Status Informant Amenorrhea Confirmed Active Chronic constipation Confirmed Active Eczema Confirmed Active History of episiotomy Confirmed Active Adult hypothyroidism Confirmed Active Normal Confirmed Active Annual physical exam Confirmed Active Postablative hypothyroidism Confirmed Active Diagnosis Diagnosis Type Effective Dates Health Status Clinical Service Informant Postablative hypothyroidism Discharge Diagnosis 02/16/24 Non-Specified Eczema Discharge Diagnosis 02/16/24 Non-Specified Dry skin Discharge Diagnosis 02/16/24 Non-Specified Fatigue Discharge Diagnosis 02/16/24 Non-Specified Procedures Procedure Date Related Diagnosis Body Site Status Shave biopsy of skin 06/09/20 Comp leted Extraction of wisdom tooth Completed Guillotine tonsillectomy and adenoidectomy Completed Myringotomy Completed Results Laboratory List Name Date Complete Blood Count w Differential (CBC ,DIFFH) 02/16/24 Estradiol Level (ESTRADIOL) 02/16/24 Ferritin (FERRITIN) 02/16/24 Follicle Stimulating Hormone Level (FSH) 02/16/24 Free T3 (T3, FREE) 02/16/24 Iron Profile (IRON PROFILE) 02/16/24 Luteinizing Hormone (LH) 02/16/24 Progesterone Level (PROGESTERONE) 4 T4, Free (T4, FREE) 02/16/24 Thyroid Stimulating Hormone (TSH) 4 Vitamin B12 Level (VITAMIN B12) 02/16/24 Vitamin D, 25-Hydroxy Level, Total (25-H YDROXY VITAMIN D) 02/16/24 Most recent to oldest [Reference Range]: 1 Vitamin D, 25-Hydroxy [30-100 ng/mL] 25 ng/mL 1 *LOW* (02/16/24 11:38 AM) MPV [9.0-12.2 fL] 11.7 fL (02/16/24 11:38 AM) Immature Gran% 0.6 % (02/16/24 11:38 AM) Neut% 53.2 % (02/16/24 11:38 AM) Lymph% 28.8 % (02/16/24 11:38 AM) Swisher% 9.5 % (02/16/24 11:38 AM) Baso% 0.6 % (02/16/24 11:38 AM) Eos% 7.3 % (02/16/24 11:38 AM) Immat Gran, Abs [0-0.4 K/uL] 0.04 K/uL (02/16/24 11:38 AM) Neut, Abs [2.0-7.7 K/uL] 3.28 K/uL (02/16/24 11:38 AM) Lymph, Abs [1.0-3.4 K/uL] 1.78 K/uL (02/16/24 11:38 AM) Swisher, Abs [0-1.0 K/uL] 0.59 K/uL (02/16/24 11:38 AM) Baso, Abs [0-0.1 K/uL] 0.04 K/uL (02/16/24 11:38 AM) Eos, Abs [0-0.5 K/uL] 0.45 K/uL (02/16/24 11:38 AM) Type of Diff: AUTO *Unknown* (02/16/24 11:38 AM) RDW [11.5-14.2 %] 14.2 % (02/16/24 11:38 AM) B12 [211-946 pg/mL] 425 pg/mL (02/16/24 11:38 AM) Estradiol Level 96 pg/mL 2 (02/16/24 11:38 AM) Iron [37-145 ug/dL] 124 ug/dL (02/16/24 11:38 AM) Ferritin [6.2-137.0 ng/mL] 56.7 ng/mL 3 (02/16/24 11:38 AM) FSH 3.00 mIU/mL 4 (02/16/24 11:38 AM) Hct [35-44 %] 42.5 % (02/16/24 AM) Hgb [11.7-15.0 g/dL] 13.5 g/dL (02/16/24 AM) LH 4.20 mIU/mL 5 (02/16/24 AM) MCH [28-33 pg] 28.4 pg (02/16/24:38 AM) MCHC [32-36 g/dL] 31.8 g/dL *LOW* (02/16/24 AM) MCV [81-96 fL] 89.3 fL (02/16/24 AM) Plts [150-350 K/uL] 250 K/uL (02/16/24 11:38 AM) Progesterone Level 9.17 ng/mL 6 (02/16/24 AM) RBC [3.90-5.00 M/uL] 4.76 M/uL (02/16/24 11:38 AM) Fe Sat [14-50 %] 50 % (02/16/24 11: AM) Free T4 [0.70-1.48 ng/dL] 0.81 ng/dL 7 (02/16/24 11:38 AM) Total IBC [250-400 ug/dL] 249 ug/dL *LOW* (02/16/24: AM) Transferrin [200-360 mg/dL] 211 mg/dL (02/16/24 11:38 AM) TSH [0.47-4.68 uIU/mL] 0.25 uIU/mL 8 *LOW* (02/16/24 11:38 AM) WBC [4.0-10.4 K/uL] 6.18 K/uL (02/16/24 11:38 AM) Free T3 [2.0-4.4 pg/mL] 4.9 pg/mL *HI* (02/16/24 11:38 AM) 1Result Comment: Deficiency: <20 ng/mL Insufficiency: 21-29 ng/mL Sufficiency: 30-100 ng/mL Potenial Toxicity: >150 ng/mL 2Result Comment: FOLLICULAR PHASE: 12.4-233 PG/ML OVULATION PHASE: 41-398 PG/ML LUTEAL PHASE: 22.3-341 PG/ML POSTMENOPAUSE: <138 PG/ML 1ST TRIMESTER: [id number] PG/ML 2ND TRIMESTER: [id number] PG/ML 3RD TRIMESTER: >8525 3Result Comment: Testing Performed By: Dept of Pathology [facility] [address], [facility] [place] [address] 4Result Comment: FOLLICULAR: 3.5-12.5 OVULATION PHASE: 4.7-21.5 LUTEAL PHASE: 1.7-7.7 POSTMENOPAUSE: 25.8-134.8 5Result Comment: Follicular Phase: 2.40-12.60 Mid Cycle Peak: 14.00-95.60 Luteal Phase: 1.00-11.40 Post Menopausal 7.70-58.50 6Result Comment: Non- Women: Follicular Phase: 0.06-0.089 Ovulation Phase: 0.12-12.00 Luteal Phase: 1.83-23.90 Postmenopause: <0.20 Women: 1st Trimester: 11.00-44.30 2nd Trimester: 25.40-83.30 3rd Trimester: 58.70-214.00 7Result Comment: Testing Performed By: Dept of Pathology [facility] [address] [facility] [place] [address] 8Result Comment: Testing Performed By: Dept of Pathology [facility] [address] [facility] [place] [address] Vital Signs Most recent to oldest [Reference Range]: 1 Patient Weight 66.2 kg (02/16/24 11:11 AM) Temperature [36.5-37.9 DegC] 36.7 DegC (02/16/24 11:11 AM) Heart Rate 62 bpm (02/16/24 11:11 AM) Respiratory Rate 20 br/min (02/16/24 11:11 AM) Blood Pressure 108/64mmHg (02/16/24 11:11 AM) Cuff Pulse Pressure 44 mmHg (02/16/24 11:11 AM) Social History Social History Type Response Smoking Status Never smoked cigaret kimmie Sex Female FCM Note * AALIYAH Liang, Fabby Lerner: PERFORM Event Display: [facility] Note Authored Date: [id number] Chief Complaint Discuss hormone levels History of Present Illness "I just wanted to get some testing on my hormones." Lexa have a history of significanteczema and has been following with a homeopathic provider virtually who is based out of [place]. "They suggested my hormones maybe off,"and specifically wanted estrogen, progesterone and other hormone levels checked. In the past she had seen dermatology regarding eczema, butsays nothing they tried helped and she would prefer to go on more natural route. She also has post ablative hypothyroidism. Has a history of mild Graves' disease and has no hypothyroid following radioactive iodine ablation. She is currently on [place] Thyroid 120 mg once daily. In the past did take levothyroxine, but wantedto try more natural medication. Labs were last completedin October 2023 and TSH was elevated at 5.84.Has not had levels rechecked. She does also struggle with fatigue, but admits she does not sleep wellas she is often up itching. Josselin has 2 small children at home. Menarche at [id number] yo.LMP was over a year ago prior to becoming with her son whois now 16 months old. She is still breast-feeding and nurses her son about twice daily. She is not currently on any control. Has no other concerns and is just requesting labs today. No fever, chills, chest pain, shortness of breath, palpitations, tachycardia, dizziness, lightheadedness, melena, hematochezia, presyncope, syncope, visual disturbances, arthralgias or myalgias. Review of Systems ROS:All other systems negative, except HPI. Physical Exam Vitals & Measurements T:36.7C HR:62(Monitored) RR:20 BP:108/64 SpO2:99% WT:66.200kg(Dosing) WT:66.2kg PHQ2 Data(Data Documented on:02/16/2024 11:11) Emotional health assessment NEGATIVE General: Alert and oriented, No acute distress.Pleasant female w/ 2 children. Eye: Pupils are equal, round and reactive to light, Extraocular movements are intact, Normal conjunctiva. HENT: Normocephalic. Neck: Supple, No lymphadenopathy, No thyromegaly. Respiratory: Lungs are clear to auscultation, Respirations are non-labored, Breath sounds are equal, Symmetrical chest wall expansion. Cardiovascular: Normal rate, Regular rhythm, No murmur, No gallop, Good pulses equal in all extremities, Normal peripheral perfusion. No LE edema. Lymphatics: No submandibular, anterior or posterior cervical adenopathy palpable. Musculoskeletal Normal gait. Integumentary: Warm, [place], No pallor.+ dry skin w/ evidence of excoriationover wrists andelbows. Neurologic: Alert, Oriented, Cranial Nerves II-XII are grossly intact. Cognition and Speech: Oriented, Speech clear and coherent, Functional cognition intact. Psychiatric: Cooperative, Appropriate mood & affect, Normal judgment, Nonsuicidal. 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 Goal is euthyroidism with TSH around 12. Labs reviewed from October 2023 and TSH was elevated. She did request a full thyroid panel be ordered, so TSH, free T4 and free T3 ordered. For now she will continue [place] Thyroid 128 mg, 1 tab p.o. daily and we will adjust dose accordingly based on lab results. 2.Eczema Eczema is chronic and has been uncontrolled. Goalis improvement to resolution of symptoms. She is not interested in a referral to dermatologyand prefers to continue to work with her homeopathic provideron managing symptoms. She did requesthormone levels todayand reviewed that often these are not helpful in the clinical settingand may not be covered by insurance, but would liketo have them drawn regardless. FSH, LH, estradiol and progesterone levels ordered. 3.Fatigue Fatigue is chronic and likely secondary to having 2 small children at home, waking to breast-feed anddisrupted sleep due toskin itching with eczema. For completeness CBC with differential, ironstudies, B12and vitamin D level ordered. Time spent on pre-visit plannin minute chart review Face to face time spent w/ patient: 13 minutes Time spent documenting pertinent clinical information into the EMR: 8minutes Total time: 22 minutes Problem List/Past Medical History Ongoing Adult hypothyroidism Amenorrhea Annual physical exam Chronic constipation Eczema History of episiotomy Normal Postablative hypothyroidism Procedure/Surgical History Shave biopsy of skin| Service Date: 06/09/2020Extraction of wisdom toothGuillotine tonsillectomy and adenoidectomyMyringotomy Medications thyroid desiccated([place] Thyroid 120 mg oral tablet), 120 mg= 1 tab, PO, Daily, 3 refills Allergies NKA Social History Smoking Status Never smoked cigarettes Alcohol - Denies Alcohol Use Exercise - Does not exercise Substance Abuse - Denies Substance Abuse Tobacco Use:Never smoker Family History Heart attack: PGF. Stroke: MGF. Type II diabetes mellitus: MGF and PGF. Health Status Family Member(s) Recommendations Health Maintenance Pending(in the next year) OverDue Adult Influenza Vaccine due03/18/23and every 1year Due Adult COVID-19 Vaccination due02/16/24Unknown Frequency Adult Folic Acid Supplementation due02/16/24and every 3year Adult Social Determinants of Health Screening due02/16/24Unknown Frequency Adult Tdap/Td Vaccine due02/16/24Unknown Frequency Cervical Cancer Screening due02/16/24Unknown Frequency Hepatitis C Screening due02/16/24One-time only Satisfied(in the past 1 year) There are no satisfied recommendations within the defined date range Patient Care team information Care Team Personnel Name: MD Jeferson, Kalyn Reed Position: Physician - Family Med Member Role: Primary Care Provider Address: Address: [address] [place] [id number] [place]
--- OUTSIDE RECORDS SUMMARY | 2024-05-12 16:06 | External Medical Summary ---
Author Name Unknown Address Unknown Organization : Laboratory Report Ordering Provider Test Date Status Jeferson Mccain 04/09/2024 08:59:00 Final Observation Date Value Abnormality Reference (Units ) Status eAG (mg/dL) 04/10/2024 03:00:00 105 (mg/dL) Final
Specimen Received d/t: 04/09/2024 22:22:00

Lab test performed by:
[facility], [facility]
[address] [place] [address]
Cooper Silva MD Hemoglobin A1c/Hemoglobin.to mague in Blood 04/10/2024 03:00:00 5.3 <5.7 (% of t otal Hgb) Final For the purpose of screening for the presence of
diabetes:

<5.7% Consistent with the absence of diabetes
5.7-6.4% Consistent with increased risk for diabetes
(prediabetes)
> or =6.5% Consistent with diabetes

This assay result is consistent with a decreased risk
of diabetes.

Currently, no consensus exists regarding use of
hemoglobin A1c for diagnosis of diabetes in children.

According to [place] Diabetes Association (ADA)
guidelines, hemoglobin A1c <7.0% represents optimal
control in non- diabetic patients. Different
metrics may apply to specific patient populations.
Standards of Medical Care in Diabetes(ADA).

Specimen Received d/t: 04/09/2024 22:22:00

Lab test performed by:
[employer]
[address]
[place] [phone]
Cooper Silva MD eAG (mmol/L) 04/10/2024 03:00:00 5.8 (mmol/L ) Final
This test was performed on the Troy [employer]ner c503 platform.
Effective 09/05/23, a change in test platforms from the
[employer] Specialist to the Troy conner c503 may have shifted
HbA1c results compared to historical results.
Based on laboratory validation testing conducted at
[facility], the Troy platform relative to the [employer]
platform had an average increase in HbA1c value of
< or = 0.3%. This difference is within accepted
variability established by the National Glycohemoglobin
Standardization Program. Note that not all individuals
will have had a shift in their results and direct
comparisons between historical and current results for
testing conducted on different platforms is not
recommended.

Specimen Received d/t: 04/09/2024 22:22:00

Lab test performed by:
[facility]
[address]
[place] [phone]
Cooper Silva MD Performing Location
--- OUTSIDE RECORDS SUMMARY | 2024-05-12 16:06 | External Medical Summary ---
Author Name Unknown Address Unknown Organization : Laboratory Report Ordering Provider Test Date Status Jeferson Mccain 04/09/2024 08:59:00 Final Observation Date Value Abnormality Reference (Units ) Status MCV [Entitic volume] by Automated count 04/10/2024 03:00:00 87.3 80.0-100.0 (fL) Final
Specimen Received d/t: 04/09/2024 22:22:00

Lab test performed by:
[facility], [facility]
[address]
[place] [address]
Cooper Silva MD Platelet mean volume [Entiti c volume] in Blood by Yenifer 04/10/2024 03:00:00 10.9 7.5-12.5 (f L) Final
Specimen Received d/t: 04/09/2024 22:22:00

Lab test performed by:
[facility], [facility]
[address]
[place] [address]
Cooper Silva MD Basophils/100 leukocytes in Blood by Automated count 04/10/2024 03:00:00 0.8 (%) Final
Specimen Received d/t: 04/09/2024 22:22:00

Lab test performed by:
[facility], [facility]
[address]
[place] [address]
Cooper Silva MD Basophils [#/volume] in Bloo d by Automated count 04/10/2024 03:00:00 62 0-200 (cells/uL) F inal
Specimen Received d/t: 04/09/2024 22:22:00

Lab test performed by:
[facility] [employer] [facility], [facility]
[address]
[place] [address]
Cooper Silva MD Erythrocytes [#/volume] in Blood by Automated count 04/10/2024 03:00:00 4.96 3.80-5.10 (Million/uL) Final
Specimen Received d/t: 04/09/2024 22:22:00

Lab test performed by:
[facility], [facility]
[address]
[place] [address]
Cooper Silva MD MCHC [Mass/volume] by Automa silvia count 04/10/2024 03:00:00 32.8 32.0-36.0 (g/dL) La l
Specimen Received d/t: 04/09/2024 22:22:00

Lab test performed by:
[facility], [facility]
[address]
[place] [address]
Cooper Silva MD Lymphocytes/100 leukocytes i n Blood by Automated count 04/10/2024 03:00:00 17.5 (%) Final
Specimen Received d/t: 04/09/2024 22:22:00

Lab test performed by:
[facility], [facility]
[address]
[place] [address]
Cooper Silva MD Lymphocytes [#/volume] in Bl ood by Automated count 04/10/2024 03:00:00 [phone] (cells /uL) Final
Specimen Received d/t: 04/09/2024 22:22:00

Lab test performed by:
[facility], [facility]
[address]
[place] [address]
Cooper Silva MD Hematocrit [Volume Fraction] of Blood by Automated count 04/10/2024 03:00:00 43.3 35.0-45.0 (%) F inal
Specimen Received d/t: 04/09/2024 22:22:00

Lab test performed by:
[facility], [facility]
[address]
[place] [address]
Cooper Silva MD Eosinophils [#/volume] in Bl ood by Automated count 04/10/2024 03:00:00 382 15-500 (cells/uL) Final
Specimen Received d/t: 04/09/2024 22:22:00

Lab test performed by:
[facility], [facility]
[address]
[place] [address]
Cooper Silva MD Platelets [#/volume] in Bloo d by Automated count 04/10/2024 03:00:00 270 140-400 (Thousa nd/uL) Final
Specimen Received d/t: 04/09/2024 22:22:00

Lab test performed by:
[facility], [facility]
[address]
[place] [address]
Cooper Silva MD Eosinophils/100 leukocytes i n Blood by Automated count 04/10/2024 03:00:00 4.9 (%) Final
Specimen Received d/t: 04/09/2024 22:22:00

Lab test performed by:
[facility] [employer], [facility]
[address]
[place] [address]
Cooper Silva MD Leukocytes [#/volume] in Blo od by Automated count 04/10/2024 03:00:00 7.8 3.8-10.8 (Thous and/uL) Final
Specimen Received d/t: 04/09/2024 22:22:00

Lab test performed by:
[facility] [employer], [facility]
[address]
[place] [address]
Cooper Silva MD MCH [Entitic mass] by Automated count 04/10/2024 03:00:00 28 .6 27.0-33.0 (pg) Final
Specimen Received d/t: 04/09/2024 22:22:00

Lab test performed by:
[facility] [employer], [facility]
[address]
[place] [address]
Cooper Silva MD Neutrophils [#/volume] in Bl ood by Automated count 04/10/2024 03:00:00 5452 [phone] (cell s/uL) Final
Specimen Received d/t: 04/09/2024 22:22:00

Lab test performed by:
[facility], [facility]
[address]
[place] [address]
Cooper Silva MD Neutrophils/100 leukocytes i n Blood by Automated count 04/10/2024 03:00:00 69.9 (%) Final
Specimen Received d/t: 04/09/2024 22:22:00

Lab test performed by:
[facility], [facility]
[address]
[place] [address]
Cooper Silva MD Hemoglobin [Mass/volume] in Blood 04/10/2024 03:00:00 14.2 11.7-15.5 (g/dL) Final
Specimen Received d/t: 04/09/2024 22:22:00

Lab test performed by:
[facility], [facility]
[address]
[place] [address]
Cooper Silva MD Monocytes [#/volume] in Bloo d by Automated count 04/10/2024 03:00:00 538 200-950 (cells/uL) Final
Specimen Received d/t: 04/09/2024 22:22:00

Lab test performed by:
[facility], [facility]
[address]
[place] [address]
Cooper Silva MD Erythrocyte distribution wid th [Ratio] by Automated count 04/10/2024 03:00:00 13.2 11.0-15.0 (%) F inal
Specimen Received d/t: 04/09/2024 22:22:00

Lab test performed by:
[facility], [facility]
[address]
[place] [address]
Cooper Silva MD Monocytes/100 leukocytes in Blood by Automated count 04/10/2024 03:00:00 6.9 (%) Final
Specimen Received d/t: 04/09/2024 22:22:00

Lab test performed by:
[facility], [facility]
[address]
[place] [address]
Cooper Silva MD Performing Location
--- OUTSIDE RECORDS SUMMARY | 2024-05-12 16:06 | External Medical Summary | Continuity of Care Document ---
Author Name Unknown Organization [facility] [address] Address [address] [place], [place] [id number] Care Team Providers Care Counter Stacker Name Role Phone Kalyn Govea Primary Care Physician [phone] [id number] Date(s): 04/09/24 - 04/09/24 [facility] [address] [facility] [place] [address] [facility] [address] [place] [address] [phone] Encounter Diagnosis General weakness(Discharge Diagnosis) - 04/09/24 Normal (Discharge Diagnosis) - 04/09/24 Chronic eczema(Discharge Diagnosis) - 04/09/24 Postablative hypothyroidism(Discharge Diagnosis) - 04/09/24 Discharge Disposition: Home or Self Care Attending Physician: MD Govea Amy L Allergies, Adverse Reactions, Alerts No Known Allergies Assessment and Plan Extracted from: Title:Office Visit Note Author:MD Govea Amy L D ate:04/09/24 1.General weakness STATUS: new complaint,stable. DATA: hx &examreviewed. GOAL: resolvesx. PLAN: will get extensive labs, including CBC, TSH, BS & A1C. Will call with these results. However, if all are normal & sx persist, advised to return. 2.Normal STATUS: new finding,stable. DATA: hxreviewed. GOAL: supportnormalpregnancy. PLAN: Cont nx-niqbqsanrbwtzamqfgouhdh-dtgt & restartpre-pamela vitamins. 3.Chronic eczema STATUS: Chronic stable. DATA: hx & examreviewed. GOAL: relieveitch,healskin. PLAN: we are limitedin whatcanbe used, given thatsheis first trimester.She will continue withmoisturizers athome. 4.Postablative hypothyroidism Status : chronic, stable. Data : sx reviewed. Goal : maintain euthyroid state. Plan : get TSH, adjust meds accordingly.She is aware of need to be likely to increase her thyroid dose & get TSH monthly, now that she is . Return prn. Time:Total time spent with this patient on day of evaluation including chart review, ordering, education and coordination of care elements: 27_ minutes Medications [place] Thyroid 120 mg oral tablet Start: 02/27/24 1:11:00 PM EDT, See Instructions, Disp# 90 tab, Refills: 3, 1 tab PO Daily on 6 daysper week, then 0.5 tab PO daily on 1 day per week, Pharmacy: [id number] Start Date: 02/27/24 Status: Ordered [place] Thyroid 180 mg oral tablet Start: 04/10/24 12:28:00 PM EDT, 1 tab, PO, Daily, Disp# 30 tab, Refills: 2, [id number] Start Date: 04/10/24 Status: Ordered Mental Status 04/09/24 Barriers to Learning one year None evide nt Mandatory Health Literacy Documentation Yes Health Literacy Communication Barriers N ever Primary Language Austrian Problem List Condition Confirmation Course Effective Dates Status H ealth Status Informant Amenorrhea Confirmed Active Chronic constipation Confirmed Active Eczema Confirmed Active History of episiotomy Confirmed Active Adult hypothyroidism Confirmed Active Normal Confirmed Active Annual physical exam Confirmed Active Postablative hypothyroidism Confirmed Active Diagnosis Diagnosis Type Effective Dates Health Status Clinical Service Informant Normal Discharge Diagnosis 04/09/24 Non-Specified Chronic eczema Discharge Diagnosis 04/09/24 Non-Specified General weakness Discharge Diagnosis 04/09/24 Non-Specified Postablative hypothyroidism Discharge Diagnosis 04/09/24 Non-Specified Procedures Procedure Date Related Diagnosis Body Site Status Shave biopsy of skin 06/09/20 Comp leted Extraction of wisdom tooth Completed Guillotine tonsillectomy and adenoidectomy Completed Myringotomy Completed Results Laboratory List Name Date CBC w/ Diff. (CBC w/ Diff-[facility]) 04/09/24 Comprehensive Metabolic Panel. (Comprehe nsive Metabolic Panel-[facility]) 04/09/24 Hemoglobin A1c w/eAG. (Hemoglobin A1c w/ eAG-[facility]) 04/09/24 Thyroid Stimulating Hormone. (Thyroid St imulating Hormone-[facility]) 04/09/24 Most recent to oldest [Reference Range]: 1 Bilirubin, Total (QST) [0.2-1.2 mg/dL] 0 .4 mg/dL 1 (04/09/24 8:58 AM) WBC Count-[facility] [3.8-10.8 Thousand/uL] 7 .8 Thousand/uL 2 (04/09/24 8:58 AM) BUN-[facility] [7-25 mg/dL] 19 mg/dL 3 (04/09/24 8:58 AM) Creatinine-[facility] [0.50-0.96 mg/dL] 0.67 mg/dL 4 (04/09/24 8:58 AM) BUN/Creat Ratio-[facility] [6-22 (calc)] SEE NOTE: (calc) 5 (04/09/24 8:58 AM) Na-[facility] [135-146 mmol/L] 134 mmol/L 6 *LOW* (04/09/24 8:58 AM) K-[facility] [3.5-5.3 mmol/L] 4.0 mmol/L 7 (04/09/24 8:58 AM) Cl-[facility] [98-110 mmol/L] 100 mmol/L 8 (04/09/24 8:58 AM) CO2-[facility] [20-32 mmol/L] 25 mmol/L 9 (04/09/24 8:58 AM) Ca-[facility] [8.6-10.2 mg/dL] 9.8 mg/dL 10 (04/09/24 8:58 AM) MPV-[facility] [7.5-12.5 fL] 10.9 fL 11 (04/09/24 8:58 AM) Absolute Neutrophils-[facility] [4427-7187 ce lls/uL] 5452 cells/uL 12 (04/09/24 8:58 AM) Absolute Lymphocytes-[facility] [850-3900 tiffanie ls/uL] 1365 cells/uL 13 (04/09/24 8:58 AM) Absolute Monocytes-[facility] [200-950 cells/ uL] 538 cells/uL 14 (04/09/24 8:58 AM) Absolute Eosinophils-[facility] [15-500 cells /uL] 382 cells/uL 15 (04/09/24 8:58 AM) Absolute Basophils-[facility] [0-200 cells/uL ] 62 cells/uL 16 (04/09/24 8:58 AM) Neutrophils-[facility] 69.9 % 17 (04/09/24 8:58 AM) Lymphocytes-[facility] 17.5 % 18 (04/09/24 8:58 AM) Monocytes-[facility] 6.9 % 19 (04/09/24 8:58 AM) Eosinophils-[facility] 4.9 % 20 (04/09/24 8:58 AM) Basophils-[facility] 0.8 % 21 (04/09/24 8:58 AM) Globulin-[facility] [1.9-3.7 g/dL (calc)] 2.7 g/dL (calc) 22 (04/09/24 8:58 AM) A/G Ratio-[facility] [1.0-2.5 (calc)] 1.8 (ca lc) 23 (04/09/24 8:58 AM) Hemoglobin Refl [11.7-15.5 g/dL] 14.2 g/ dL 24 (04/09/24 8:58 AM) Hematocrit Refl [35.0-45.0 %] 43.3 % 25 (04/09/24 8:58 AM) RBC Refl [3.80-5.10 Million/uL] 4.96 Mil lion/uL 26 (04/09/24 8:58 AM) MCV Refl [80.0-100.0 fL] 87.3 fL 27 (04/09/24 8:58 AM) MCH Refl [27.0-33.0 pg] 28.6 pg 28 (04/09/24 8:58 AM) RDW Refl [11.0-15.0 %] 13.2 % 29 (04/09/24 8:58 AM) Alkaline Phosphatase (ALP) [31-125 U/L] 41 U/L 30 (04/09/24 8:58 AM) Albumin, Serum [3.6-5.1 g/dL] 4.8 g/dL 3 1 (04/09/24 8:58 AM) eAG (mg/dL) 105 mg/dL 32 (04/09/24 8:58 AM) eAG (mmol/L) 5.8 mmol/L 33 (04/09/24 8:58 AM) ALT [6-29 U/L] 10 U/L 34 (04/09/24 8:58 AM) HbA1c [<5.7 % of total Hgb] 5.3 % of tot al Hgb 35 (04/09/24 8:58 AM) eGFR-QST [> OR = 60 mL/min/1.73m2] 121 m L/min/1.73m2 36 (04/09/24 8:58 AM) MCHC (QST) [32.0-36.0 g/dL] 32.8 g/dL 37 (04/09/24 8:58 AM) TSH (QST) 55.28 mIU/L 38 *HI* (04/09/24 8:58 AM) AST [10-30 U/L] 13 U/L 39 (04/09/24 8:58 AM) Glucose-Qst [65-99 mg/dL] 73 mg/dL 40 (04/09/24 8:58 AM) Platelet Count [140-400 Thousand/uL] 270 Thousand/uL 41 (04/09/24 8:58 AM) Total Protein-QST [6.1-8.1 g/dL] 7.5 g/d L 42 (04/09/24 8:58 AM) 1Result Comment: Specimen Received d/t: 04/09/2024 22:22:00 Lab test performed by: [facility] [address] [place] [address] Cooper Silva MD 2Result Comment: Specimen Received d/t: 04/09/2024 22:22:00 Lab test performed by: [facility] [address] [place] [address] [place] [address]Nabil Silva MD 3Result Comment: Specimen Received d/t: 04/09/2024 22:22:00 Lab test performed by: [facility] [address] [place] [address] [place] [address]Nabil Silva MD 4Result Comment: Specimen Received d/t: 04/09/2024 22:22:00 Lab test performed by: [facility] [address] [place] [address] [place] [address]Nabil Silva MD 5Result Comment: Not Reported: BUN and Creatinine are within reference range. Specimen Received d/t: 04/09/2024 22:22:00 Lab test performed by: [facility] [address] [place], [place] Irma Silva MD 6Result Comment: Specimen Received d/t: 04/09/2024 22:22:00 Lab test performed by: [facility] [address] [place], [place] [address] [place], [place] Irma Silva MD 7Result Comment: Specimen Received d/t: 04/09/2024 22:22:00 Lab test performed by: [facility] [address] [place] [address] Irma Silva MD 8Result Comment: Specimen Received d/t: 04/09/2024 22:22:00 Lab test performed by: [facility] Irma Silva MD 9Result Comment: Specimen Received d/t: 04/09/2024 22:22:00 Lab test performed by: [facility] [address] [place] [address] Irma Silva MD 10Result Comment: Specimen Received d/t: 04/09/2024 22:22:00 Lab test performed by: [facility] [address] [place] [address] Irma Silva MD 11Result Comment: Specimen Received d/t: 04/09/2024 22:22:00 Lab test performed by: [facility] [address] [place] [address] Irma Silva MD 12Result Comment: Specimen Received d/t: 04/09/2024 22:22:00 Lab test performed by: [facility] [address] [place] [address] Irma Silva MD 13Result Comment: Specimen Received d/t: 04/09/2024 22:22:00 Lab test performed by: [facility] [address] [place] [address] [address] [place] Irma Silva MD 14Result Comment: Specimen Received d/t: 04/09/2024 22:22:00 Lab test performed by: [facility] [address] LILA Vasquez MD 15Result Comment: Specimen Received d/t: 04/09/2024 22:22:00 Lab test performed by: [facility] [address] [place] Irma Silva MD 16Result Comment: Specimen Received d/t: 04/09/2024 22:22:00 Lab test performed by: [facility] [address] [place] Irma Silva MD 17Result Comment: Specimen Received d/t: 04/09/2024 22:22:00 Lab test performed by: [facility] [address] [place] Irma Silva MD 18Result Comment: Specimen Received d/t: 04/09/2024 22:22:00 Lab test performed by: [facility] [address] [place] Irma Silva MD 19Result Comment: Specimen Received d/t: 04/09/2024 22:22:00 Lab test performed by: [facility] [address] LILA Vasquez MD 20Result Comment: Specimen Received d/t: 04/09/2024 22:22:00 Lab test performed by: [facility] [address] [place] Irma Silva MD 21Result Comment: Specimen Received d/t: 04/09/2024 22:22:00 Lab test performed by: [facility] [address] [place] Irma Silva MD 22Result Comment: Specimen Received d/t: 04/09/2024 22:22:00 Lab test performed by: [facility] [address] [place] [address] Cooper Silva MD 23Result Comment: Specimen Received d/t: 04/09/2024 22:22:00 Lab test performed by: [facility] [address] [place] [address] Cooper Silva MD 24Result Comment: Specimen Received d/t: 04/09/2024 22:22:00 Lab test performed by: [facility] [address] [place] [address] Cooper Silva MD 25Result Comment: Specimen Received d/t: 04/09/2024 22:22:00 Lab test performed by: [facility] [address] [place] [address]Nabil Silva MD 26Result Comment: Specimen Received d/t: 04/09/2024 22:22:00 Lab test performed by: [facility], [facility] [address] [place] [address] Cooper Silva MD 27Result Comment: Specimen Received d/t: 04/09/2024 22:22:00 Lab test performed by: [facility] [address] [place] [address]Nabil Silva MD 28Result Comment: Specimen Received d/t: 04/09/2024 22:22:00 Lab test performed by: [facility] [address] [place] [address] Cooper Silva MD 29Result Comment: Specimen Received d/t: 04/09/2024 22:22:00 Lab test performed by: [facility] [address] [place] [address] Cooper Silva MD 30Result Comment: Specimen Received d/t: 04/09/2024 22:22:00 Lab test performed by: [facility] [address] Cooper Silva MD 31Result Comment: Specimen Received d/t: 04/09/2024 22:22:00 Lab test performed by: [facility] [address] Cooper Silva MD 32Result Comment: Specimen Received d/t: 04/09/2024 22:22:00 Lab test performed by: [facility] [address] Cooper Silva MD 33Result Comment: This test was performed on the Troy conner c503 platform. Effective 09/05/23, a change in test platforms from the [employer] to the [employer] conner c503 may have shifted HbA1c results compared to historical results. Based [facility], the [employer] platform relative to the Gonzalez [...] d/t: 04/09/2024 22:22:00 Lab test performed by: [facility] [address] Cooper Silva MD 34Result Comment: Specimen Received d/t: 04/09/2024 22:22:00 Lab test performed by: [facility] [address] Cooper Silva MD 35Result Comment: For the purpose of screening for the presence of diabetes: <5.7% Consistent with the absence of diabetes 5.7-6.4% Consistent with increased risk for diabetes (prediabetes) > or =6.5% Consistent with diabetes This assay result is consistent with a decreased risk of diabetes. Currently, no consensus exists regarding use of hemoglobin A1c for diagnosis of diabetes in children. According to [place] Diabetes Association (ADA) guidelines, hemoglobin A1c <7.0% represents optimal control in non- diabetic patients. Different metrics may apply to specific patient populations. Standards of Medical Care in Diabetes(ADA). Specimen Received d/t: 04/09/2024 22:22:00 Lab test performed by: [facility] [address] [place] [address]Josefina Silva MD 36Result Comment: Specimen Received d/t: 04/09/2024 22:22:00 Lab test performed by: [facility] [address] [place] [address]Nabil Silva MD 37Result Comment: Specimen Received d/t: 04/09/2024 22:22:00 Lab test performed by: [facility] [address] [place] [address]Josefina Silva MD 38Result Comment: Reference Range > or = 20 Years 0.40-4.50 Ranges First trimester 0.26-2.66 Second trimester 0.55-2.73 Third trimester 0.43-2.91 Specimen Received d/t: 04/09/2024 22:22:00 Lab test performed by: [facility] [address] [place] [address]Josefina Silva MD 39Result Comment: Specimen Received d/t: 04/09/2024 22:22:00 Lab test performed by: [facility] [address] [place] Irma Silva MD 40Result Comment: Fasting reference interval Specimen Received d/t: 04/09/2024 22:22:00 Lab test performed by: [facility] [address] [place] [address]Nabil Silva MD 41Result Comment: Specimen Received d/t: 04/09/2024 22:22:00 Lab test performed by: [facility] [address] [place] [address]Nabil Silva MD 42Result Comment: Specimen Received d/t: 04/09/2024 22:22:00 Lab test performed by: [facility] [address] [place] [address] Cooper Silva MD Vital Signs Most recent to oldest [Reference Range]: 1 Patient Weight 66.7 kg (04/09/24 8:40 AM) Heart Rate 82 bpm (04/09/24 8:40 AM) Blood Pressure 122/78mmHg (04/09/24 8:40 AM) Cuff Pulse Pressure 44 mmHg (04/09/24 8:40 AM) Social History Social History Type Response Smoking Status Never smoked cigaret kimmie Sex Female Sex Representation Female (finding) FCM Outpt Note * MD Jeferson, Kalyn Reed: PERFORM Event Display: FCM Outpt Note Authored Date: Chief Complaint 6.5 weeks - getting light headed, shaky and weak in the mornings. History of Present Illness Here for following concerns : 1) - she is about 6.5 weeks , so problems with . She does feel nauseated in am, not vomiting. Is drinking lots of liquids. She is eating well, has ordered pre-pamela vitamins, but not yet started them. She plans to have a home delivery with a mid- & has contacted them. They are due to call her back to schedule initial visit. 2) Feels shaky - she has noted that her hands feel shaky a littleafter she eats breakfast. She feels weak all over when this occurs. No pre-syncope, dizziness or correlation with standing up, or position changes. She has 2 children & never felt this way before when she was . She denies anxiety. Her thinks that she is just exhausted, he tries to allow her more time to nap on weekends, when he is home. 3) Eczema - she has really bad eczema, which oftenkeeps her from sleeping at night. She is using a product that has goat milk in it. Review of Systems Review of Systems- Constitutional: +fatigue, mayhave gained a littleweight. HEENT: no vision changes, or sinus congestion. Respiratory: no cough, SOB, or wheezing. Cardiac: no chest pain, palpitations or pedal edema. GI: no abdominal pain, vomiting or change in bowel habits. : no dysuria. Neurologic: no headaches. Physical Exam Vitals & Measurements HR:82(Monitored) BP:122/78 SpO2:99% WT:66.7kg WT:66.700kg(Dosing) Alert, in NAD. HEENT - PERRL, TM's clear, nares clear, oropharynx normal. Neck - supple, no adenopathy, thyromegaly or mass. Lungs - clear with good breath sounds, no wheezing. Heart - RRR, no murmur. Abdomen - +BS, soft, NT without HSM or mass. Neuro - alert, oriented. Skin - markedly dry on arms, face & neck. Assessment/Plan 1.General weakness STATUS: new complaint,stable. DATA: hx &examreviewed. GOAL: resolvesx. PLAN: will get extensive labs, including CBC, TSH, BS & A1C. Will call with these results. However, if all are normal & sx persist, advised to return. 2.Normal STATUS: new finding,stable. DATA: hxreviewed. GOAL: supportnormalpregnancy. PLAN: Cont hv-yzylhruadgtudmrfizwnxas-qytd & restartpre-pamela vitamins. 3.Chronic eczema STATUS: Chronic stable. DATA: hx & examreviewed. GOAL: relieveitch,healskin. PLAN: we are limitedin whatcanbe used, given thatsheis first trimester.She will continue withmoisturizers athome. 4.Postablative hypothyroidism Status : chronic, stable. Data : sx reviewed. Goal : maintain euthyroid state. Plan : get TSH, adjust meds accordingly.She is aware of need to be likely to increase her thyroiddose & get TSH monthly, now that she is . Return prn. Time:Total time spent with this patient on day of evaluation including chart review, ordering, education and coordination of care elements: 27_ minutes Problem List/Past Medical History Ongoing Adult hypothyroidism Amenorrhea Annual physical exam Chronic constipation Eczema History of episiotomy Normal Postablative hypothyroidism Procedure/Surgical History Shave biopsy of skin| Service Date: 06/09/2020Extraction of wisdom toothGuillotine tonsillectomy and adenoidectomyMyringotomy Medications thyroid desiccated([place] Thyroid 120 mg oral tablet), See Instructions, 3 refills thyroid desiccated([place] Thyroid 120 mg oral tablet), See Instructions, 3 refills Allergies NKA Social History Smoking Status Never smoked cigarettes Alcohol - Denies Alcohol Use Exercise - Does not exercise Substance Abuse - Denies Substance Abuse Tobacco Use:Never smoker Family History Heart attack: PGF. Stroke: MGF. Type II diabetes mellitus: MGF and PGF. Health Status Family Member(s) Recommendations Health Maintenance Pending(in the next year) Due Adult Influenza Vaccine due03/18/24and every 1year Adult COVID-19 Vaccination due04/09/24Unknown Frequency Adult Folic Acid Supplementation due04/09/24and every 3year Adult Social Determinants of Health Screening due04/09/24Unknown Frequency Adult Tdap/Td Vaccine due04/09/24Unknown Frequency Cervical Cancer Screening due04/09/24Unknown Frequency Hepatitis C Screening due04/09/24One-time only Satisfied(in the past 1 year) There are no satisfied recommendations within the defined date range Electronic Signature on File Electronically Reviewed/Signed by: Kalyn Govea MD Author Signature Dt/Tm:04/09/2024 10:38 AM [employer] [facility] [address] [place] [address] [facility] Patient Care team information Care Team Personnel Name: MD Jeferson, Kalyn Reed Position: Physician - Family Med Member Role: Primary Care Provider Address: [address] [place] [id number] [place]"
--- OUTSIDE RECORDS SUMMARY | 2024-05-12 16:06 | External Medical Summary ---
Author Name Unknown Address Unknown Organization : Laboratory Report Ordering Provider Test Date Status Jeferson Mccain 04/09/2024 08:59:00 Final Observation Date Value Abnormality Reference (Units ) Status Creatinine [Mass/volume] in Serum or Plasma 04/10/2024 03:00:00 0.67 0.50-0.96 (mg/dL) Final
Specimen Received d/t: 04/09/2024 22:22:00

Lab test performed by:
[facility] [employer], [facility]
[address]
[place] [address]
Cooper Silva MD Chloride [Moles/volume] in S rogelio or Plasma 04/10/2024 03:00:00 100 98-110 (mmol/L) Final
Specimen Received d/t: 04/09/2024 22:22:00

Lab test performed by:
[facility] [employer], [facility]
[address]
[place] [address]
Cooper Silva MD Alanine aminotransferase [En zymatic activity/volume] in Serum or Plasma 04/10/2024 03:00:00 10 6-29 (U/L) Final
Specimen Received d/t: 04/09/2024 22:22:00

Lab test performed by:
[facility] [employer], [facility]
[address]
[place] [address]
Cooper Silva MD Globulin[facility] 04/10/2024 03:00:00 2.7 1.9-3 .7 (g/dL (calc)) Final
Specimen Received d/t: 04/09/2024 22:22:00

Lab test performed by:
[facility] [employer], [facility]
[address]
[place] [address]
Cooper Silva MD Urea nitrogen/Creatinine [Ma ss Ratio] in Serum or Plasma 04/10/2024 03:00:00 SEE NOTE: 6- ((c alc)) Final Not Reported: BUN and Creati nine are within
reference range.

Specimen Received d/t: 04/09/2024 22:22:00

Lab test performed by:
[email or web address], [facility]
[address]
[place] [address]
Cooper Silva MD Ca[facility] 04/10/2024 03:00:00 9.8 8.6-10.2 ( mg/dL) Final
Specimen Received d/t: 04/09/2024 22:22:00

Lab test performed by:
[email or web address], [facility]
[address]
[place] [address]
Cooper Silva MD Bilirubin.total [Mass/volume ] in Serum or Plasma 04/10/2024 03:00:00 0.4 0.2-1.2 (mg/dL) Fi nal
Specimen Received d/t: 04/09/2024 22:22:00

Lab test performed by:
[facility] [employer], [facility]
[address]
[place] [address]
Cooper Silva MD Urea nitrogen [Mass/volume] in Serum or Plasma 04/10/2024 03:00:00 19 7-25 (mg/dL) Final
Specimen Received d/t: 04/09/2024 22:22:00

Lab test performed by:
[facility] [employer], [facility]
[address]
[place] [address]
Cooper Silva MD Potassium [Moles/volume] in Serum or Plasma 04/10/2024 03:00:00 4.0 3.5-5.3 (mmol/L) La l
Specimen Received d/t: 04/09/2024 22:22:00

Lab test performed by:
[facility] [employer], [facility]
[address]
[place] [address]
Cooper Silva MD Aspartate aminotransferase [ Enzymatic activity/volume] in Serum or Plasma 04/10/2024 03:00:00 13 10-30 (U/L) Final
Specimen Received d/t: 04/09/2024 22:22:00

Lab test performed by:
[facility] [employer], [facility]
[address]
[place] [address]
Cooper Silva MD Albumin [Mass/volume] in Ser um or Plasma 04/10/2024 03:00:00 4.8 3.6-5.1 (g/dL) Final
Specimen Received d/t: 04/09/2024 22:22:00

Lab test performed by:
[facility] [employer], [facility]
[address]
[place] [address]
Cooper Silva MD eGFR 04/10/2024 03:00:00 121 > OR = 60 (mL/min/1.73m2) Final
Specimen Received d/t: 04/09/2024 22:22:00

Lab test performed by:
[facility] [employer], [facility]
[address]
[place] [address]
Cooper Silva MD Albumin/Globulin [Mass Ratio ] in Serum or Plasma 04/10/2024 03:00:00 1.8 1.0-2.5 ((calc)) F inal
Specimen Received d/t: 04/09/2024 22:22:00

Lab test performed by:
[facility] [employer], [facility]
[address]
[place] [address]
Cooper Silva MD Carbon dioxide, total [Moles /volume] in Serum or Plasma 04/10/2024 03:00:00 25 20-32 (mmol/L) Fin al
Specimen Received d/t: 04/09/2024 22:22:00

Lab test performed by:
[facility] [employer], [facility]
[address]
[place] [address]
Cooper Silva MD Glucose [Mass/volume] in Serum or Plasma 04/10/2024 03:00:00 73 65-99 (mg/dL) Final
Fasting reference inte rval

Specimen Received d/t: 04/09/2024 22:22:00

Lab test performed by:
[facility] [employer], [facility]
[address]
[place] [address]
Cooper Silva MD Sodium [Moles/volume] in Serum or Plasma 04/10/2024 03:00:00 134 Below low normal 135-146 (mmol/L) Final
Specimen Received d/t: 04/09/2024 22:22:00

Lab test performed by:
[email or web address], [facility]
[address]
[place] [address]
Cooper Silva MD Protein [Mass/volume] in Ser um or Plasma 04/10/2024 03:00:00 7.5 6.1-8.1 (g/dL) Final
Specimen Received d/t: 04/09/2024 22:22:00

Lab test performed by:
[email or web address], [facility]
[address]
[place] [address]
Cooper Silva MD Alkaline phosphatase [Enzyma tic activity/volume] in Serum or Plasma 04/10/2024 03:00:00 41 31-125 (U/L) Final
Specimen Received d/t: 04/09/2024 22:22:00

Lab test performed by:
[email or web address], [facility]
[address]
[place] [address]
Cooper Silva MD Performing Location
--- OUTSIDE RECORDS SUMMARY | 2024-05-12 16:06 | External Medical Summary ---
Author Name Unknown Address Unknown Organization : Laboratory Report Ordering Provider Test Date Status Jeferson Mccain 04/09/2024 08:59:00 Final Observation Date Value Abnormality Reference (Units ) Status Thyrotropin [Units/volume] in Serum or Plasma 04/10/2024 03:00:00 55.28 Above high normal (mIU/L) Final Reference Range

> or = 20 Years 0.40-4.50

Ranges
First trimester 0.26-2.66
Second trimester 0.55-2.73
Third trimester 0.43-2.91

Specimen Received d/t: 04/09/2024 22:22:00

Lab test performed by:
[facility]
[address]
[place] [address]
Cooper Silva MD Performing Location
--- OUTSIDE RECORDS SUMMARY | 2024-05-12 16:06 | External Medical Summary | Continuity of Care Document ---
Author Name Unknown Organization [facility] [address] Address [address], [place] [id number] Care Team Providers Care Teacher Education Instructor Name Role Phone Kalyn Govea Primary Care Physician [phone] [facility] [id number] Date(s): 04/09/24 - 04/09/24 [facility] [address] [facility] [place] [address] [facility] [address] [place] [address] [phone] Encounter Diagnosis General weakness(Discharge Diagnosis) - 04/09/24 [...] finding,stable. DATA: hxreviewed. GOAL: supportnormalpregnancy. PLAN: Cont jm-yuvgturfphhhzoljystsflb-jpzz & restartpre-pamela vitamins. 3.Chronic eczema STATUS: Chronic [...] coordination of care elements: 27_ minutes Medications Mcdonough Thyroid 120 mg oral tablet Start: 02/27/24 1:11:00 PM EDT, See Instructions, Disp# 90 tab, Refills: 3, 1 tab PO Daily on 6 daysper week, then 0.5 tab PO daily on 1 day per week, Pharmacy: [id number] Start Date: 02/27/24 Status: Ordered Mcdonough Thyroid 180 mg oral tablet Start: 04/10/24 12:28:00 PM EDT, 1 tab, PO, Daily, Disp# 30 tab, Refills: 2, [facility] Start Date: 04/10/24 Status: Ordered Mental Status 04/09/24 Barriers to Learning one year None evide nt Mandatory Health Literacy Documentation Yes Health Literacy Communication Barriers N ever Primary Language Scottish Problem List Condition Confirmation Course Effective Dates [...] fL 11 (04/09/24 8:58 AM) Absolute Neutrophils-[facility] [7496-0576 ce lls/uL] 5452 cells/uL 12 (04/09/24 8:58 [...] d/t: 04/09/2024 22:22:00 Lab test performed by: [facility] [address] [place] [address] Cooper Silva MD 2Result Comment: Specimen Received d/t: 04/09/2024 22:22:00 Lab test performed by: [facility] [address] [place] [address] [place] [address]Nabil Silva MD 3Result Comment: Specimen Received d/t: 04/09/2024 22:22:00 Lab test performed by: [facility] [address] [place] [address] [place] [address]Nabil Silva MD 4Result Comment: Specimen Received d/t: 04/09/2024 22:22:00 Lab test performed by: [facility] [facility] [address] [place] [address] [place] [address]Nabil Silva MD 5Result Comment: Not Reported: BUN and Creatinine are within reference range. Specimen Received d/t: 04/09/2024 22:22:00 Lab test performed by: [employer] [facility] [address] [place], [place] Irma Silva MD 6Result Comment: Specimen Received d/t: 04/09/2024 22:22:00 Lab test performed by: [employer] [facility] [address] [place], [place] [address] [place], [place] Irma Silva MD 7Result Comment: Specimen Received d/t: 04/09/2024 22:22:00 Lab test performed by: [employer] [facility] [address] [place] [address] Irma Silva MD 8Result Comment: Specimen Received d/t: 04/09/2024 22:22:00 Lab test performed by: [employer] [facility] Irma Silva MD 9Result Comment: Specimen Received d/t: 04/09/2024 22:22:00 Lab test performed by: [employer] [facility] [address] [place] [address] Irma Silva MD 10Result Comment: Specimen Received d/t: 04/09/2024 22:22:00 Lab test performed by: [employer] [facility] [address] [place] [address] Irma Silva MD 11Result Comment: Specimen Received d/t: 04/09/2024 22:22:00 Lab test performed by: [employer] [facility] [address] [place] [address] Irma Silva MD 12Result Comment: Specimen Received d/t: 04/09/2024 22:22:00 Lab test performed by: [employer] [facility] [address] [place] [address] Irma Silva MD 13Result Comment: Specimen Received d/t: 04/09/2024 22:22:00 Lab test performed by: [employer] [facility] [address] [place] [address] [place] Irma Silva MD 14Result Comment: Specimen Received d/t: 04/09/2024 22:22:00 Lab test performed by: [employer] [facility] [address] [place] Vasquez MD 15Result Comment: Specimen Received d/t: 04/09/2024 22:22:00 Lab test performed by: [employer] [facility] [address] [place] Irma Silva MD 16Result Comment: Specimen Received d/t: 04/09/2024 22:22:00 Lab test performed by: [employer] [facility] [address] [place] Irma Silva MD 17Result Comment: Specimen Received d/t: 04/09/2024 22:22:00 Lab test performed by: [employer] [facility] [address] [place] Irma Silva MD 18Result Comment: Specimen Received d/t: 04/09/2024 22:22:00 Lab test performed by: [facility] [facility] [address] [place] Irma Silva MD 19Result Comment: Specimen Received d/t: 04/09/2024 22:22:00 Lab test performed by: [facility] [address] [place] Vasquez MD 20Result Comment: Specimen Received d/t: 04/09/2024 22:22:00 Lab test performed by: [employer] [facility] [address] [place] Irma Silva MD 21Result Comment: Specimen Received d/t: 04/09/2024 22:22:00 Lab test performed by: [employer] [facility] [address] [place] Irma Silva MD 22Result Comment: Specimen Received d/t: 04/09/2024 22:22:00 Lab test performed by: [facility] [address] [place] [address] Cooper Silva MD 23Result Comment: Specimen Received d/t: 04/09/2024 22:22:00 Lab test performed by: [employer] [facility] [address] [place] [address] Cooper Silva MD 24Result Comment: Specimen Received d/t: 04/09/2024 22:22:00 Lab test performed by: [employer], [facility] [address] [place] [address] Cooper Silva MD 25Result Comment: Specimen Received d/t: 04/09/2024 22:22:00 Lab test performed by: [employer] [facility] [address] [place] [address]Nabil Silva MD 26Result Comment: Specimen Received d/t: 04/09/2024 22:22:00 Lab test performed by: [employer], [facility] [address] [place] [address] Cooper Silva MD 27Result Comment: Specimen Received d/t: 04/09/2024 22:22:00 Lab test performed by: [employer] [facility] [address] [place] [address]Nabil Silva MD 28Result Comment: Specimen Received d/t: 04/09/2024 22:22:00 Lab test performed by: [facility] [employer] [facility] [address] [place] [address] Cooper Silva MD 29Result Comment: Specimen Received d/t: 04/09/2024 22:22:00 Lab test performed by: [facility] [employer] [facility] [address] [place] [address] Cooper Silva MD 30Result Comment: Specimen Received d/t: 04/09/2024 22:22:00 Lab test performed by: [facility] [address] Cooper Silva MD 31Result Comment: Specimen Received d/t: 04/09/2024 22:22:00 Lab test performed by: [facility] [address] Cooper Silva MD 32Result Comment: Specimen Received d/t: 04/09/2024 22:22:00 Lab test performed by: [facility] [address] Cooper Silva MD 33Result Comment: This test was performed on the Troy conner c503 platform. Effective 09/05/23, a change in test platforms from the [employer] to the Troy conner c503 may have shifted HbA1c results compared to historical results. Based on laboratory validation testing conducted at [facility], the Troy platform relative to the Gonzalez [...] d/t: 04/09/2024 22:22:00 Lab test performed by: [facility] [address] Cooper Silva MD 34Result Comment: Specimen Received d/t: 04/09/2024 22:22:00 Lab test performed by: [facility] [address] Cooper Silva MD 35Result Comment: For the [...] diagnosis of diabetes in children. According to [place] Diabetes Association (ADA) guidelines, hemoglobin A1c <7.0% represents optimal control in non- diabetic patients. Different metrics may apply to specific patient populations. Standards of Medical Care in Diabetes(ADA). Specimen Received d/t: 04/09/2024 22:22:00 Lab test performed by: [employer] [facility] [address] [place] [address]Josefina Silva MD 36Result Comment: Specimen Received d/t: 04/09/2024 22:22:00 Lab test performed by: [employer] [facility] [address] [place] [address]Nabil Silva MD 37Result Comment: Specimen Received d/t: 04/09/2024 22:22:00 Lab test performed by: [employer] [facility] [address] [place] [address]Josefina Silva MD 38Result Comment: Reference Range > or = 20 Years 0.40-4.50 Ranges First trimester 0.26-2.66 Second trimester 0.55-2.73 Third trimester 0.43-2.91 Specimen Received d/t: 04/09/2024 22:22:00 Lab test performed by: [employer] [facility] [address] [place] [address]Josefina Silva MD 39Result Comment: Specimen Received d/t: 04/09/2024 22:22:00 Lab test performed by: [employer] [address] [place] Irma Silva MD 40Result Comment: Fasting reference interval Specimen Received d/t: 04/09/2024 22:22:00 Lab test performed by: [facility] [address] [place] [address]Nabil Silva MD 41Result Comment: Specimen Received d/t: 04/09/2024 22:22:00 Lab test performed by: [employer] [facility] [address] [place] [address]Nabil Silva MD 42Result Comment: Specimen Received d/t: 04/09/2024 22:22:00 Lab test performed by: [facility] [address] [place] [address] Cooper Silva MD Vital Signs Most recent [...] finding,stable. DATA: hxreviewed. GOAL: supportnormalpregnancy. PLAN: Cont lw-hyqhchstpnjtxyjsqwbhnor-zejo & restartpre-pamela vitamins. 3.Chronic eczema STATUS: Chronic [...] wisdom toothGuillotine tonsillectomy and adenoidectomyMyringotomy Medications thyroid desiccated(Mcdonough Thyroid 120 mg oral tablet), See Instructions, 3 refills thyroid desiccated(Mcdonough Thyroid 120 mg oral tablet), See Instructions, [...] Govea MD Author Signature Dt/Tm:04/09/2024 10:38 AM [facility] [address] [place] [address] [facility] Patient Care team information Care Team Personnel Name: MD Jeferson, Kalyn Reed Position: Physician - Family Med Member Role: Primary Care Provider Address: [address] [place] [id number] [place]"
[2024-05-12 16:29] VITALS: BP 118/78; PULSE 82
[2024-05-12] MEDS: POTASSIUM CHLORIDE 20 MEQ/15 ML UDC PO STA (16:51)
--- NOTE | 2024-05-12 18:26 | Billing Data ---
Date of Service May 12, 2024 Coding Level of Care Code 46675 IN/OBS DISCH 30 MIN/LESS
--- NOTE | 2024-05-12 18:26 | Discharge Summary ---
Discharge Summary Date of Service May 12, 2024 Principal Dx & Hospital Course #1 = Principal Diagnosis (1) Allergic reaction: Exact etiology uncertainpresented hypoxic and cyanotic, possibly hypotensive in the field, although I do not see documented true low blood pressures just a reference to being hypotensiveand by the time she arrived in the ER she was over 100 systolic. - Improved after Benadryl and steroidsquite quickly - has been stable since last night by the time I see herand she is very anxious to go homewhich seems reasonable - not entirely clear if she was having an anaphylactic reactionand if so to what, versus mast cell activation, versus otherto this end, discussed EpiPen use, and also discussed EpiPen risks in ; discussed prompt return to the ER/hospital if anything seems amiss given her overall situation; discussed allergy/immunology referral (and personally sent a message to our allergy/immunology team with her chart attached to help facilitate follow-up) - safe/stable for home with close follow-up --- elevated troponin normal certainly demand ischemia from the hypoxia, echo quite reassuring and troponin trended down. (2) Hypothyroidism: TSH 17doubt this was contributing directly to her symptomatic complex, although being mildly hypothyroid may have helped contribute in a indirect way. At the same time certainly concerning with hypothyroidism during pregnancyand on [place] Thyroid. Discussed with patient that converting from [place] to levothyroxine, as well as getting to an adequate levothyroxine dose during will be a "moving target"but a good starting point would be about 200 mcg of levothyroxine. While it will likely be too soon to see a euthyroid state, to ensure that we are moving in the right direction and do not need to adjust the dose drastically, recommended a repeat TSH in about 3 weeks. Close PCP follow-up. Notes For Next Care Provider Medication Changes From Visit epi pen prn Admission HPI Per Admitting Provider Judi is a 28F w/ PMH of hyperthyroidism s/p radioiodine ablation now hypothyroid who presented via EMS after being found at home cyanotic, hypoxic, and hypotensive after dinner. Patient notes that she had dinner around 7:30 (a pre-packaged cauliflower pizza from [employer]) and subsequently began to experience dyspnea and throat tightness. At the time, her was on a walk with their children, when he returned and found her dyspneic, EMS was called. Upon EMS arrival patient was noted to be cyanotic w/ O2 saturations in the 60s. Patient has no known history of allergies. 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 She has no history of asthma or COPD and does not smoke/vape. Patient has never had a similar episode. Patient denies chest pain, pleuritic pain, lightheadedness, dizziness, dysuria, bowel changes, or lower extremity edema. She has not experienced any recent URI sx and her family has not recently been sick. At the time of evaluation, all of patient's symptoms had resolved. Patient is currently 11 weeks with her third baby. She has two young children at home. She notes that she was nursing her second child when she got . She has had no abdominal pain, vaginal bleeding, or spotting. She has felt well this and denies complications with previous pregnancies. She is established with a center machine operator and plans to deliver her child at home. She is not currently taking any supplements. Patient takes Armor thyroid at baseline for hypothyroidism. She notes that her thyroid levels are often labile and she was recently increased from 120 mg to 180 mg due to an elevated TSH. She notes a history of difficulty controlling her thyroid during pregnancies and nursing. She has been referred to an Division Sales Manager but has not yet seen them. Discharge Exam in general she is awake alert oriented pleasant no distress. HEENT normocephalic atraumatic mucous membranes moist. Breathing unlabored no accessory muscle use good effort no stridor no conversational dyspnea on room air. Neuro without focal deficits. Skin with dry flaking skin on her cheeks that she notes is chronic. Updated Medication List Medication Instructions Recorded Confirmed Type epinephrine 0.3 mg/0.3 mL 0.3 mg (0.3 mL) IM Q3H PRN 05/12/24 Rx injection, auto-injector anaphylaxis #2 ea levothyroxine 200 mcg tablet 200 mcg PO DAILY #30 tabs 05/12/24 Rx (Euthyrox) Hospital Stay Data Consultations 05/11/24 23:53 ED Decision to Admit Stat 05/12/24 00:55 Consult Obstetrics Routine Diagnostic Imagining Performed 05/11/24 20:16 US ectopic Stat 05/11/24 21:18 CT angio chest PE protocol Stat Pending Results Patient Have Any Pending Studies at Discharge: Yes Discharge Instructions Given to Patient (Per Discharging Provider) You were admitted to the hospital for symptoms concerning for a severe allergic reaction or possibly anaphylaxis. You were treated with diphenhydramine, famotidine, and methylprednisolone. A discharge summary will be sent to your primary care physician to ensure continuity of care. Please bring this discharge summary with you to your next office appointment so that your provider can review it at that time. Follow-up appointments: Make a follow-up appointment with your PCP within the next week and with your turbine inspector as soon as possible. It is very important that you follow up with them shortly after discharge. Keep all your follow-up appointments as already scheduled. If you cannot make an appointment, notify your provider. Medications: Your medication list has been reviewed and reconciled upon discharge to ensure accuracy and continuity of care. An updated list of all your medications is included with your hospital discharge paperwork. Please review this list closely, and make note of any changes. We sent a new medication called levothyroxine to your pharmacy. Take levothyroxine, 200 mcg, daily an hour before your morning meal. The dosage can be adjusted as an outpatient based on your latest TSH levels. We sent a new medication called Epi-Pen to your pharmacy. Take one auto- injection of the Epi-pen if you have symptoms concerning for an anaphylactic reaction (i.e. sudden shortness of breath, throat tightening, accompanied by sudden nausea/vomiting, hives). Your potassium level was low during your hospital stay. It was 3.2 (normal 3.5 -5.0). This may be due to intermittent vomiting associated with morning sickness during your first trimester of . Try to eat foods high in potassium to help restore those levels, such as bananas, coconut water, avocados, orange juice, etc. Take your medications as instructed; do not skip a dose of your medicines. Make sure all of your doctors know every medicine you are taking (including [id number] medicines, vitamins, and supplements). Call your primary care provider before taking any new medicines (including vvec-wob-[id number] medicines, vitamins, and supplements), because some of these may interact with your current medications, or may make your symptoms worse. Tell your primary care provider if you cannot afford your medications. CONTACT YOUR PRIMARY CARE PROVIDER if you experience any of the following: shortness of breath, throat tightening, nausea/vomiting, chest pain Difficulty following your treatment plan, or difficulty taking medications CALL 911 OR GO TO THE EMERGENCY DEPARTMENT if you experience any of the following: Sudden, severe abdominal pain or nausea/vomiting Severe chest pain, or chest pain that radiates (moves) to your jaw or arm Sudden, severe shortness of breath or difficulty breathing Thank you for allowing us to participate in your care Total Time Total Time Spent Total Time Spent (In Minutes): <30
--- NOTE | 2024-05-13 02:23 | Billing Data ---
Date of Service May 13, 2024 Coding Level of Care Code 26970 INT INP/OBS CARE
[2024-05-15 13:16] LABS: Almond Allergen IgE 0.41 kU/L; Alternaria Class 1; Alternaria IgE 0.49 kU/L; Ash (White) Class 2; Ash (White) IgE 0.97 kU/L; Asperg Fumig Class 1; Asperg Fumig IgE 0.47 kU/L; Bermuda Grass Class 3; Birch Class 1; Birch IgE 0.41 kU/L; Cashew IgE <0.10 kU/L; Cat Dander Class 0/1; Cat Dander IgE 0.32 kU/L; Cladosporium IgE 1.45 kU/L; Cladosporium her Class 2; Cockroach Allergen Class 2; Cockroach IgE Ab 1.07 kU/L; Codfish IgE <0.10 kU/L; Cottonwood Class 2; D. farinae Class 2; D. farinae IgE 1.51 kU/L; D. pteronyssinus Class 2; D. pteronyssinus IgE 1.96 kU/L; Dog Dander Class 2; Dog Dander IgE 2.11 kU/L; Egg White Class 2; Elm Class 2; Elm IgE 0.94 kU/L; Immunoglobulin IgE 3307 kU/L (<OR=114); Maple (Box Elder) IgE 1.38 kU/L; Maple Class 2; Milk, Cow's Class 4; Mountain Cedar Class 4; Mouse Urine Protein Class 0; Mouse Urine Protein IgE <0.10 kU/L; Mugwort (W6) IgE 8.78 kU/L; Mugwort Class 3; Oak-White Class 0/1; Oak-White IgE 0.33 kU/L; Peanut IgE 0.45 kU/L; Penic Notatum Class 2; Penic Notatum IgE 1.92 kU/L; Rough Pigweed Class 0/1; Rough Pigweed IgE 0.25 kU/L; Salmon IgE 0.16 kU/L; Scallop IgE 0.66 kU/L; Sheep Sorrel Class 1; Sheep Sorrel IgE 0.53 kU/L; Short Ragweed Class 2; Short Ragweed IgE 2.98 kU/L; Shrimp Class 2; Shrimp IgE 0.77 kU/L; Sycamore Class 1; Sycamore IgE 0.66 kU/L; Timothy Class 4; Tuna IgE <0.10 kU/L; Walnut Tree Class 2; Walnut Tree IgE 1.27 kU/L; Wheat Class 2; White Mulberry Class 0/1; White Mulberry IgE 0.24 kU/L
[2024-05-16 06:37] LABS: Cat rFel d 1 (e94) Ab IgE <0.10 kU/L (<0.10); Cat rFel d 4 (e228) Ab IgE 1.55 kU/L (<0.10); Cat rFel d 7 (e231) Ab IgE <0.10 kU/L (<0.10); Dog rCan f 1 Ab IgE <0.10 kU/L (<0.10); Dog rCan f 2 Ab IgE <0.10 kU/L (<0.10); Dog rCan f 4 Ab IgE <0.10 kU/L (<0.10); Dog rCan f 5 Ab IgE 0.57 kU/L (<0.10); Dog rCan f 6 Ab IgE 4.71 kU/L (<0.10)
--- NOTE | 2024-05-16 15:43 | Electrocardiogram Report ---
Test Reason : Blood Pressure : */* mmHG Vent. Rate : 125 BPM Atrial Rate : 125 BPM P-R Int : 132 ms QRS Dur : 76 ms QT Int : 320 ms P-R-T Axes : 73 66 54 degrees QTcB Int : 461 ms Sinus tachycardia Right atrial enlargement Nonspecific ST abnormality Abnormal ECG No previous ECGs available Confirmed by Melissa Nicholas (Jose David) on 05/12/2024 9:19:44 AM Referred By: REFERRED SELF Confirmed By: Melissa Nicholas
== END 2024-05-12 17:31 | disposition home or self-care (01) ==
LOC: ED 19:54 → 2N 19:54 → SUATTDRO 05-12 01:02 → 2N 05-12 03:28